=== PATIENT | male | born 1965 | race Two or more races ===

== ENCOUNTER → 2020-04-22 15:42 | Outpatient (BNVA) | payer OTHER, SELFPAY | PROVIDERS: Visit Provider Urology ==

== ENCOUNTER → 2020-05-27 15:02 | Outpatient (BNVA) | payer OTHER, SELFPAY | PROVIDERS: Visit Provider Urology ==

== ENCOUNTER → 2020-12-11 10:10 | Outpatient (BNVA) | payer OTHER, SELFPAY | PROVIDERS: Visit Provider Urology ==

== ENCOUNTER → 2021-04-16 12:08 | Outpatient (BNVA) | payer OTHER, SELFPAY | PROVIDERS: Visit Provider Urology ==

== ENCOUNTER → 2021-05-19 14:43 | Outpatient (BNVA) | payer OTHER, SELFPAY | PROVIDERS: Visit Provider Urology | DX: Z13.89 Encounter for screening for other disorder (principal) ==

== ENCOUNTER → 2021-06-08 10:59 | Outpatient (REF) | payer OTHER, SELFPAY ==
--- NOTE | ~2021-06-08 | NM_ITS ---
EXAMINATION: NM BONE SCAN OF THE WHOLE BODY CLINICAL INFORMATION: Malignant neoplasm of prostate. COMPARISON: No previous bone scan or radiographs are available for comparison. TECHNIQUE: Multiple gamma scintillation camera images of the whole body were performed 2.75 hours following the intravenous administration of 30 mCi Tc-99m MDP. FINDINGS: In the head, several foci of mildly to moderately increased activity are present in the calvarium, most prominently a moderately intense focus near the midline in the posterior occipital skull. In the thoracic cage and upper extremities, multiple foci of moderately to markedly increased activity are present throughout the rib cage, at the right sternoclavicular joint, in the glenohumeral articulation of the right shoulder and in a faint focus in the proximal shaft of the right humerus. 1. Are 2 small foci of moderate activity are present in the inferior tip of the left scapula and another faint focus is present laterally in the spine of the left scapula. Additional faint foci in the right scapula are also present. In the spine, multiple foci of moderately to markedly increased activity are present throughout the thoracic and lumbar spine. In the pelvis, moderate to markedly increased activity is present in multiple foci in the pelvis, most intensely in the posterior aspects of the iliac bones bilaterally. In the lower extremities, there is a small moderately intense focus in the lesser trochanteric region of the left femur, and just distal to this an additional small faint focus is present. There is a small focus of mildly increased activity in the patellar compartment of the right knee and in another in the medial aspect of the left ankle. No other definite bony abnormalities are noted. The urinary bladder and faint visualization of both kidneys are noted. NM/NM bone scan whole body IMPRESSION: Widespread metastatic tumor involvement of bone as described above.
== END ==
LOC: HO.NUCMED 10:59
PROVIDERS: Visit Provider Urology
DX: C61 Malignant neoplasm of prostate (principal); Z79.51 Long term (current) use of inhaled steroids
CPT/HCPCS: 78306; A9503

== ENCOUNTER → 2021-06-11 13:28 | Outpatient (BNVA) | payer OTHER, SELFPAY | PROVIDERS: PCP Physician Assistant; Visit Provider Urology | DX: C61 Malignant neoplasm of prostate (principal); C79.51 Secondary malignant neoplasm of bone | CPT/HCPCS: 96402; J9217 ==

== ENCOUNTER → 2021-06-18 12:56 | Outpatient (BNV) | payer OTHER, SELFPAY | PROVIDERS: PCP Physician Assistant; Visit Provider Internal Medicine Medical Oncology | DX: C61 Malignant neoplasm of prostate (principal); C79.51 Secondary malignant neoplasm of bone | CPT/HCPCS: 99204; 99213; 99214 ==

== ENCOUNTER → 2021-06-23 13:00 | Outpatient (BNVA) | payer OTHER, SELFPAY | PROVIDERS: PCP Physician Assistant; Visit Provider Urology | DX: Z13.89 Encounter for screening for other disorder (principal) ==

== ENCOUNTER 2021-08-07 08:18 | Outpatient (REF) | payer OTHER, SELFPAY ==
[2021-08-07 08:44] LABS: MANUAL DIFF FLAG NO
[2021-08-07 08:45] LABS: Basophils Percent Auto 0.6 % (0-2); Eosinophils Absolute Auto 0.1 X10*3/uL (0.0-0.4); Eosinophils Percent Auto 1.9 % (0-4); Hematocrit 41.9 % (42.0-52.0); Hemoglobin 14.3 g/dl (14.0-18.0); Imm Gran Abs Auto 0.02 X10*3/uL (0.00-0.03); Imm Gran Pct Auto 0.3 % (0.0-0.4); Lymphocytes Absolute Auto 2.6 X10*3/uL (1.2-4.9); Lymphocytes Percent Auto 38.3 % (20-40); Mean Corpuscular HGB Conc 34.1 g/dl (31.0-36.0); Mean Corpuscular Hemoglobin 29.5 pg (27.0-33.0); Mean Corpuscular Volume 86.4 fL (80.0-98.0); Mean Platelet Volume 8.9 fL (9.4-12.4); Monocytes Absolute Auto 0.8 X10*3/uL (0.1-1.2); Monocytes Percent Auto 11.6 % (2-11); Neutrophils Absolute Auto 3.2 x10*3/uL (2.0-8.3); Neutrophils Percent Auto 47.3 % (45-73); Platelet Count 217 X10*3/uL (160-400); Red Blood Count 4.85 X10*6/uL (4.60-5.80); Red Cell Distribution Width 12.6 % (11.0-16.0); White Blood Count 6.8 X10*3/uL (4.8-10.8)
[2021-08-07 09:14] LABS: Alanine Aminotransferase 26 U/L (0-40); Alkaline Phosphatase 137 U/L (39-117); Anion Gap 9 (12-20); Aspartate Amino Transferase 21 U/L (5-37); Bilirubin Total 0.6 mg/dL (0.0-1.0); Blood Urea Nitrogen 9 mg/dL (9-16); Calcium 8.1 mg/dL (8.4-10.2); Carbon Dioxide 26 mmol/L (22-29); Chloride 108 mmol/L (96-108); Estimated Glomerular Filt Rate > 60; Glucose Random 93 mg/dL (60-115); Potassium 4.2 mmol/L (3.3-5.1); Sodium 139 mmol/L (135-145)
[2021-08-07 09:24] LABS: Prostate Specific Antigen Scr 1.77 ng/mL (<0.05-4.0)
== END 2021-08-07 08:19 | disposition home or self-care (01) ==
LOC: HO.LAB 08:18
PROVIDERS: Urology; PCP Physician Assistant; Visit Provider Internal Medicine Medical Oncology
DX: Z12.5 Encounter for screening for malignant neoplasm of prostate (principal); C61 Malignant neoplasm of prostate
CPT/HCPCS: 36415; 80053; 82565; 84153; 85025

== ENCOUNTER 2021-08-11 14:44 | Outpatient (REF) | payer OTHER, SELFPAY ==
[2021-08-11 16:00] LABS: Blood Urea Nitrogen 14 mg/dL (9-16); Estimated Glomerular Filt Rate > 60
[2021-08-11 16:22] LABS: Prostate Specific Antigen 1.46 ng/mL (<0.05-4.0)
[2021-08-17 09:52] LABS: Testosterone, Total <1 ng/dL (250-1100)
== END 2021-08-11 14:45 | disposition home or self-care (01) ==
LOC: HO.LAB 14:44
PROVIDERS: Visit Provider Urology
DX: Z12.5 Encounter for screening for malignant neoplasm of prostate (principal); C61 Malignant neoplasm of prostate; C79.51 Secondary malignant neoplasm of bone; R39.15 Urgency of urination; R97.21 Rising PSA following treatment for malignant neoplasm of prostate
CPT/HCPCS: 36415; 82565; 84153; 84403; 84520

== ENCOUNTER → 2021-12-29 09:54 | Outpatient (BNVA) | payer OTHER, SELFPAY | PROVIDERS: PCP Physician Assistant; Visit Provider Urology | DX: R97.21 Rising PSA following treatment for malignant neoplasm of prostate (principal); C61 Malignant neoplasm of prostate; C79.51 Secondary malignant neoplasm of bone | CPT/HCPCS: 96402; J9217 ==

== ENCOUNTER 2022-01-17 13:59 | Outpatient (REF) | payer OTHER, SELFPAY ==
[2022-01-17 14:20] LABS: MANUAL DIFF FLAG NO
[2022-01-17 15:01] LABS: Basophils Absolute Auto 0.1 X10*3/uL (0.0-0.2); Basophils Percent Auto 0.9 % (0-2); Eosinophils Percent Auto 0.3 % (0-4); Hematocrit 42.5 % (42.0-52.0); Hemoglobin 14.4 g/dl (14.0-18.0); Imm Gran Abs Auto 0.22 X10*3/uL (0.00-0.03); Imm Gran Pct Auto 1.9 % (0.0-0.4); Lymphocytes Absolute Auto 3.6 X10*3/uL (1.2-4.9); Lymphocytes Percent Auto 31.2 % (20-40); Mean Corpuscular HGB Conc 33.9 g/dl (31.0-36.0); Mean Corpuscular Hemoglobin 28.8 pg (27.0-33.0); Mean Platelet Volume 9.4 fL (9.4-12.4); Monocytes Absolute Auto 1.2 X10*3/uL (0.1-1.2); Monocytes Percent Auto 10.6 % (2-11); Neutrophils Absolute Auto 6.4 x10*3/uL (2.0-8.3); Neutrophils Percent Auto 55.1 % (45-73); Platelet Count 261 X10*3/uL (160-400); Red Cell Distribution Width 12.4 % (11.0-16.0); White Blood Count 11.6 X10*3/uL (4.8-10.8)
[2022-01-17 16:07] LABS: Alanine Aminotransferase 31 U/L (0-40); Albumin Level 3.9 g/dL (3.5-5.0); Alkaline Phosphatase 94 U/L (39-117); Anion Gap 13 (12-20); Aspartate Amino Transferase 19 U/L (5-37); Bilirubin Total 0.3 mg/dL (0.0-1.0); Blood Urea Nitrogen 10 mg/dL (9-16); Calcium 8.7 mg/dL (8.4-10.2); Carbon Dioxide 24 mmol/L (22-29); Chloride 107 mmol/L (96-108); Estimated Glomerular Filt Rate > 60; Glucose Random 82 mg/dL (60-115); Potassium 3.8 mmol/L (3.3-5.1); Sodium 140 mmol/L (135-145); TSH reflex Free T4 0.04 uIU/mL (0.32-4.0); Total Protein 6.8 g/dL (6.5-8.0)
[2022-01-17 16:09] LABS: Prostate Specific Antigen Scr 2.29 ng/mL (<0.05-4.0)
[2022-01-17 16:40] LABS: Free T4 (Free Thyroxine) 1.54 ng/dL (0.71-1.85)
== END 2022-01-17 14:00 | disposition home or self-care (01) ==
LOC: HO.LAB 13:59
PROVIDERS: Absent Provider Physician Assistant; PCP Physician Assistant; Visit Provider Internal Medicine Medical Oncology
DX: Z12.5 Encounter for screening for malignant neoplasm of prostate (principal); C61 Malignant neoplasm of prostate; E03.9 Hypothyroidism, unspecified
CPT/HCPCS: 36415; 80053; 84153; 84439; 84443; 85025

== ENCOUNTER 2022-03-21 11:08 | Outpatient (REF) | payer OTHER, SELFPAY ==
[2022-03-21 11:45] LABS: COVID-19 Test Negative (Negative); IDNOW Serial# BCCEAD1C
== END 2022-03-21 11:09 | disposition home or self-care (01) ==
LOC: HO.LAB 11:08
PROVIDERS: Visit Provider Internal Medicine
DX: Z20.822 Contact with and (suspected) exposure to COVID-19 (principal)
CPT/HCPCS: 87635; C9803

== ENCOUNTER → 2022-04-01 12:59 | Outpatient (BNVA) | payer OTHER, SELFPAY | PROVIDERS: PCP Physician Assistant; Visit Provider Urology | DX: Z13.89 Encounter for screening for other disorder (principal) ==

== ENCOUNTER → 2022-04-05 10:57 | Outpatient (REF) | payer OTHER, SELFPAY ==
--- NOTE | ~2022-04-05 | NM_ITS ---
EXAMINATION: NM BONE SCAN OF THE WHOLE BODY CLINICAL INFORMATION: Follow up prostate cancer with bone metastatic disease COMPARISON: Previous dated 06/08/2021 TECHNIQUE: Multiple gamma scintillation camera images of the whole body were performed 2 hours following the intravenous administration of 30 mCi Tc-99m MDP. FINDINGS: In the head, improved. There is still activity within the posterior central calvarium which appears less than previous and diminished activity in the other 2 foci posterior. In the thoracic cage and upper extremities as in the skull, there is once again uptake in areas observed previously but this is felt to be diminishing in multiple areas. There is no convincing evidence for a new focus. In the spine, again foci of uptake are seen but many are now imperceptible and several are markedly diminished. Importantly no new focus. In the pelvis, again decreasing areas of activity within multiple areas seen previously. Some are totally diminished. There remains some mild uptake in the central sacrum and left acetabulum. In the lower extremities, diminished uptake in the region of the lesser trochanter of the left hip. No new focus. No other definite bony abnormalities are noted. The urinary bladder and faint visualization of both kidneys are noted. NM/NM bone scan whole body IMPRESSION: Areas of uptake are once again seen. As described many of these areas are now imperceptible while others are decreased to markedly decreased in uptake. Importantly there is no new finding.
== END ==
LOC: HO.NUCMED 10:57
PROVIDERS: Visit Provider Internal Medicine Medical Oncology
DX: C61 Malignant neoplasm of prostate (principal)
CPT/HCPCS: 78306; A9503

== ENCOUNTER → 2022-07-08 12:58 | Outpatient (BNVA) | payer OTHER, SELFPAY | PROVIDERS: PCP Physician Assistant; Visit Provider Urology | DX: C61 Malignant neoplasm of prostate (principal); C79.51 Secondary malignant neoplasm of bone; R97.21 Rising PSA following treatment for malignant neoplasm of prostate; N52.35 Erectile dysfunction following radiation therapy; Z79.52 Long term (current) use of systemic steroids; Z79.899 Other long term (current) drug therapy; Z92.3 Personal history of irradiation | CPT/HCPCS: 96402; J9217 ==

== ENCOUNTER 2022-11-15 08:21 | Outpatient (REF) | payer OTHER, SELFPAY ==
[2022-11-15 09:46] LABS: Prostate Specific Antigen 0.67 ng/mL (<0.05-4.0)
[2022-11-20 15:13] LABS: Testosterone, Total 145 ng/dL (250-1100)
== END 2022-11-15 08:22 | disposition home or self-care (01) ==
LOC: HO.LAB 08:21
PROVIDERS: Visit Provider Urology
DX: Z12.5 Encounter for screening for malignant neoplasm of prostate (principal); R97.21 Rising PSA following treatment for malignant neoplasm of prostate
CPT/HCPCS: 36415; 84153; 84403

== ENCOUNTER 2022-11-22 15:15 | Outpatient (AMB) | payer OTHER, SELFPAY ==
--- NOTE | 2022-11-22 15:34 | A.OFFVIS_ITS ---
Intake Intake Visit Reasons: 3M PSA/Testosterone(set) Intake Note: Patient is Present for Follow Up LABS Urology Medication: Tadalafil, Sildenafil, Eligard(q6m) Antibiotic Allergies: None Blood Thinners: None Pharmacy: [facility] Allergies No Known Allergies Allergy (Verified 12/01/22 15:21) Medication List - Last Reconciled 11/22/22 by Wesly Tejada MD cholecalciferol (vitamin D3) (Vitamin D3) 50 mcg PO DAILY gabapentin 300 mg PO BEDTIME 90 days leuprolide acetate (6 month) (Eligard) 45 mg subcut [id number] levothyroxine 200 mcg PO DAILY sildenafil 100 mg PO DAILY PRN 30 days tadalafil 10 mg PO DAILY PRN 90 days HPI HPI Comments History of Present Illness Details Chaparro Shah is a very pleasant male. He is a patient of Dr Waterman. He is seen for the following urologic conditions. - prostate cancer - rising PSA from prostate cancer - meta static disease - erectile dysfunction PSA stable however T is recovered. Due for GnRH next month Plan for GnRH next months with labs early March with prolia Repeat PET-CT - will continue with 6 month cycle Completed 7 cycles of taxotere 07/12 PSMA scan no new osseous activity. Does have widespread bony metastases. Last GnRH 07/08/22 Labs 05/12 0.4, 11/12 P 0.7 T 145 Prostate cancer: High-grade Initial therapy: 09/2015 EXBRT plus 18m hormone therapy [facility] Secondary therapy: 06/11 Metastatic disease - 12/[address] Michaels 06/11 GnRH with oral antiandrogen (Zytiga and prednisone) - bone scan positive - denosumab adjuvant Prostate cancer was diagnosed September 2015 Dr Tejada. Diagnosis was reached by needle biopsy, for elevated PSA, PSA at diagnosis 9.5 The Shahana grade is September 2015 - At biopsy, left base, 3+4 = 7, left mid gland, 4+5 = 9, left apex, 3+4 = 7 12 cores - all left ranging from 5-90%, perineural invasion, base x 2. TNM Classification of Malignant Tumours (TNM) T1c 12/05 MRI - PAWAN , T3a 12/05 Bone Scan - Negative. The D'Michael (NCCN) risk category is High Risk (PSA > 20, Gl 8+, T3). Initial therapy included Primary treatment, External beam radiation with 18m hormone ablation - Dr Gudino 12/2015 GnRH - 06/01/16, next 11/15/1605/07 5AR TIW 08/07 stop 5AR. Recent labs included a PSA (prostate-specific antigen)n 06/06 < 0.1 , a testosterone 06/06 13 09/05 , a PSA (prostate-specific antigen), < 0.1, , a testosterone 7, 12/06 , a PSA (prostate-specific antigen) < 0.1, T 18, 02/05 , a PSA (prostate- specific antigen) < 0.1 05/07 a PSA (prostate-specific antigen) 0.2, , a testosterone 247, 08/07 , a PSA (prostate-specific antigen) 0.3, T 314, 12/07 , a PSA (prostate-specific antigen) 0.7 T 340 04/10 PSA 0.8, 10/08 PSA 0.9, T 465 04/11 1.0, 10/09 1.2, 04/12 0.8, T 600, 12/10 PSA 1.7 T 480, 04/13 9.5, 09/10 1.1 <1, 12/11 11, 01/11 3.4 Imaging included Oct 2015 , an MRI (magnetic resonance imaging) - evidence of extracapsular extension by 5 mm. , a bone scan - negative - 05/11 PSMA PET-CT SCAN concern for metastatic bone disease - 06/11 bone scan positive for metastatic prostate cancer - 10/11 PSMA progressive disease - 07/12 PSMA stabilized disease Associated conditions erectile dysfunction Yes Therapeutic plan: Continue GnRH Erectile dysfunction Good response tadalafil 10 mg daily As sildenafil 100 mg as needed PFSH Medical History Blood in the stool Drug-induced erectile dysfunction Elevated PSA Erectile dysfunction following radiation therapy High cholesterol Hypothyroidism Nocturia Prostate cancer Urgency-frequency syndrome Surgical History History of surgery Family History Sister Breast cancer Paternal Uncle Cancer Social History Household Members: Spouse and Children Housing: House Are you a primary nurse care manager to a significant other at home: No Do you presently have visiting nurse or other home services: No Patient Tobacco Use Status: Never used Tobacco Use of substances other than those prescribed or required for medical reasons: No Have you been hit, kicked, punched, or otherwise hurt by someone within the past year? If so, by whom?: No Do you feel safe in your current relationship?: Yes Do you have thoughts of harming others: None Do you have a plan to hurt others: No Plan Do you have the means to hurt others: No Recently lost weight without trying: No service: Yes Current occupational status: retired Review of Systems Const Denies chills and Denies fever(s) Card Reports no additional complaints and Denies syncope Resp Denies cough GI Denies abdominal pain and Denies heartburn Reports as per HPI and Denies change in libido Neuro Denies syncope Psych Denies change in libido Endo Denies change in libido Physical Exam Const General: cooperative, healthy appearing, comfortable and no acute distress Orientation/consciousness: patient oriented x3 HEENT Face and sinus: Yes normal facial exam Mouth: moist mucous membranes Neck Neck: Yes normal visual inspection, Yes full ROM and Yes trachea midline Chest Chest palpation & inspection: normal inspection of the chest Resp Effort & Inspection: normal respiratory effort, able to speak in complete sentences and no respiratory distress GI Inspection: Yes normal to inspection Back/Spine/Pelvis Cervical Spine: normal cervical lordosis Thoracic/Lumbar Spine: thoracic and lumbar spine normal to inspection Skin General skin exam: no rashes or lesions noted Neuro General: patient oriented x3, gait normal, tone normal and moves all extremities Extrem General: Yes normal to inspection and Yes capillary refill normal Assessment & Plan Assessment & Plan (1) Bone metastases: Code(s): C79.51 - Secondary malignant neoplasm of bone (2) Prostate cancer metastatic to bone: Code(s): C61 - Malignant neoplasm of prostate; C79.51 - Secondary malignant neoplasm of bone Plan One month follow-up PET-CT with Prolia GnRH Orders: Orders PET CT fusion skull to thigh 4 Weeks C61 - Malignant neoplasm of prostate, C79.51 - Secondary malignant neoplasm of bone Patient Instructions: Imaging studies, laboratory and physical exam results were discussed and reviewed in detail. No major barriers to patient understanding were identified. An opportunity to ask questions regarding the treatment plan was provided. All questions were answered. The patient expressed understanding and agreement with the above treatment plan. The patient is aware they should contact our office by phone for worsening of their current condition or the appearance of new urologic symptoms. Compliance is encouraged with any medications and followup testing that is ordered. It is a privilege to participate in the urologic care of your patient. If you have any questions or concerns regarding treatment for the above conditions, or other urologic issues, please do not hesitate to contact me. The office telephone contact is [phone]. This note is constructed using voice recognition software. While every effort has been made to ensure accuracy screw down errors may have been included. Yours sincerely, Dr Wesly Tejada MD, [facility] - Urology Providers of Expert, Compassionate Care for the Genitourinary System Coding Level of Care Code Est Pt Level 4 (67502) Diagnoses Bone metastases C79.51 Prostate cancer metastatic to bone C61; C79.51
== END 2022-11-22 15:58 | disposition home or self-care (01) ==
PROVIDERS: PCP Physician Assistant; Visit Provider Urology
DX: C61 Malignant neoplasm of prostate (principal); C79.51 Secondary malignant neoplasm of bone
CPT/HCPCS: 99214

== ENCOUNTER → 2022-11-22 15:15 | Outpatient (BNVA) | payer OTHER, SELFPAY | PROVIDERS: Visit Provider Urology ==

== ENCOUNTER 2022-12-28 12:33 | Outpatient (REF) | payer OTHER, SELFPAY ==
[2022-12-28 10:26] LABS: Prostate Specific Antigen 2.71 ng/mL (<0.05-4.0)
[2023-01-03 11:09] LABS: Testosterone, Total 204 ng/dL (250-1100)
== END 2022-12-28 12:34 | disposition home or self-care (01) ==
LOC: HO.LAB 12:33
PROVIDERS: Visit Provider Urology
DX: Z12.5 Encounter for screening for malignant neoplasm of prostate (principal); C61 Malignant neoplasm of prostate; C79.51 Secondary malignant neoplasm of bone
CPT/HCPCS: 36415; 84153; 84403

== ENCOUNTER 2023-01-03 09:50 | Outpatient (AMB) | payer OTHER, SELFPAY ==
--- NOTE | 2023-01-03 10:18 | AM.OFFVISNUR ---
Intake Intake Visit Reasons: GnRH/Prolia Allergies No Known Allergies Allergy (Verified 01/02/23 10:16) Nursing Note pt refused Prolia injection stating received yesterday at Oncology, reviewed Oncology note and verified injection was given by them in their office at yesterday's visit. Office Meds Prolia 60 mg/mL subcutaneous syringe Performing Provider: Wesly Tejada MD [place] [facility] [place] [facility] Documented (not given) by: Heather Turner RN on 01/03/23 10:18 Reason Not Given: Patient Refused Eligard (6 month) 45 mg (6 month) subcutaneous syringe Performing Provider: Wesly Tejada MD [place] [facility] [place] [facility] Administered by: Heather Turner RN on 01/03/23 10:18 Dose Route Admin Location Dispensed Lot Number Expiration Date [facility] [employer] 45 mg subcut right arm 45 mg [id number] 02/21/24 12253-407-42 [employer]. Coding Assessment & Plan Assessment & Plan Orders: Orders AMB Leuprolide Injection - Practice Supplied Today C61 - Malignant neoplasm of prostate AMB Denosumab Injection Practice Supplied Today C61 - Malignant neoplasm of prostate, C79.51 - Secondary malignant neoplasm of bone
== END 2023-01-03 11:14 | disposition home or self-care (01) ==
PROVIDERS: PCP Physician Assistant; Visit Provider Urology
DX: C61 Malignant neoplasm of prostate (principal); C79.51 Secondary malignant neoplasm of bone

== ENCOUNTER → 2023-01-03 09:50 | Outpatient (BNVA) | payer OTHER, SELFPAY | PROVIDERS: PCP Physician Assistant; Visit Provider Urology | DX: C61 Malignant neoplasm of prostate (principal); C79.51 Secondary malignant neoplasm of bone; Z79.620 Long term (current) use of immunosuppressive biologic | CPT/HCPCS: 96372; 96402; J0897; J9217 ==

== ENCOUNTER 2023-01-31 08:51 | Outpatient (AMB) | payer OTHER, SELFPAY ==
--- NOTE | 2023-01-31 09:03 | A.OFFVIS_ITS ---
Intake Intake Visit Reasons: 4W PET CT(SET) Intake Note: Patient is Present for Follow Up PET CT Urology Medication: Sildenafil, Tadalafil Antibiotic Allergies: None Blood Thinners: None Allergies No Known Allergies Allergy (Verified 01/31/23 09:04) Medication List - Last Reconciled 01/31/23 by Wesly Tejada MD cholecalciferol (vitamin D3) (Vitamin D3) 50 mcg PO DAILY gabapentin 300 mg PO BEDTIME 90 days levothyroxine 200 mcg PO DAILY pantoprazole 40 mg PO DAILY sildenafil 100 mg PO DAILY PRN 30 days tadalafil 10 mg PO DAILY PRN 90 days HPI HPI Comments History of Present Illness Details Chaparro Shah is a very pleasant male. He is a patient of Dr Waterman. He is seen for the following urologic conditions. - prostate cancer - rising PSA from prostate cancer - meta static disease - erectile dysfunction 02/11 - PET-CT - progressive bony diseas e, new retroperitoneal lesion - good performance status Does report ongoing back pain Has been undergoing and denosumab therapy with Dr. Michaels. Current recommendation is for evaluation for LuPSMA therapy with radiation oncology Referral to be made to [facility] Rad Onc for assessment Has upcoming lab work Three month follow-up 01/12 PSA 2.7 T 204 - GnRH Completed 7 cycles of taxotere 07/12 PSMA scan no new osseous activity. Does have widespread bony metastases. 07/08/22 GnRH Labs 05/12 0.4, 11/12 P 0.7 T 145 Prostate cancer: High-grade Initial therapy: 09/2015 EXBRT plus 18m hormone therapy [facility] Secondary therapy: 06/11 Metastatic disease - 12/[address] Michaels 06/11 GnRH with oral antiandrogen (Zytiga and prednisone) - bone scan positive - denosumab adjuvant Prostate cancer was diagnosed September 2015 Dr Tejada. Diagnosis was reached by needle biopsy, for elevated PSA, PSA at diagnosis 9.5 The Shahana grade is September 2015 - At biopsy, left base, 3+4 = 7, left mid gland, 4+5 = 9, left apex, 3+4 = 7 07/01 cores - all left ranging from 5-90%, perineural invasion, base x 2. TNM Classification of Malignant Tumours (TNM) T1c 12/05 MRI - PAWAN , T3a 12/05 Bone Scan - Negative. The D'Michael (NCCN) risk category is High Risk (PSA > 20, Gl 8+, T3). Initial therapy included Primary treatment, External beam radiation with 18m hormone ablation - Dr Gudino 12/2015 GnRH - 06/01/16, next 11/15/1605/07 5AR TIW 08/07 stop 5AR. Recent labs included a PSA (prostate-specific antigen)n 06/06 < 0.1 , a testosterone 06/06 13 09/05 , a PSA (prostate-specific antigen), < 0.1, , a testosterone 7, 12/06 , a PSA (prostate-specific antigen) < 0.1, T 18, 02/05 , a PSA (prostate- specific antigen) < 0.1 05/07 a PSA (prostate-specific antigen) 0.2, , a testosterone 247, 08/07 , a PSA (prostate-specific antigen) 0.3, T 314, 12/07 , a PSA (prostate-specific antigen) 0.7 T 340 04/10 PSA 0.8, 10/08 PSA 0.9, T 465 04/11 1.0, 10/09 1.2, 04/12 0.8, T 600, 12/10 PSA 1.7 T 480, 04/13 9.5, 09/10 1.1 <1, 12/11 11, 01/11 3.4 Imaging included Oct 2015 , an MRI (magnetic resonance imaging) - evidence of extracapsular extension by 5 mm. , a bone scan - negative - 05/11 PSMA PET-CT SCAN concern for metastatic bone disease - 06/11 bone scan positive for metastatic prostate cancer - 10/11 PSMA progressive disease - 07/12 PSMA stabilized disease Associated conditions erectile dysfunction Yes Therapeutic plan: Continue GnRH Erectile dysfunction Good response tadalafil 10 mg daily As sildenafil 100 mg as needed PFSH Medical History Drug-induced erectile dysfunction High cholesterol Blood in the stool Hypothyroidism Elevated PSA Erectile dysfunction following radiation therapy Urgency-frequency syndrome Nocturia Prostate cancer Surgical History History of surgery Family History Sister Breast cancer Paternal Uncle Cancer Social History Household Members: Spouse and Children Housing: House Are you a primary managed care liaison to a significant other at home: No Do you presently have visiting nurse or other home services: No Patient Tobacco Use Status: Never used Tobacco service: Yes Current occupational status: retired Review of Systems Const Denies chills and Denies fever(s) Card Reports no additional complaints and Denies syncope Resp Denies cough GI Denies abdominal pain and Denies heartburn Reports as per HPI and Denies change in libido Neuro Denies syncope Psych Denies change in libido Endo Denies change in libido Physical Exam Const General: cooperative, healthy appearing, comfortable and no acute distress Orientation/consciousness: patient oriented x3 HEENT Face and sinus: Yes normal facial exam Mouth: moist mucous membranes Neck Neck: Yes normal visual inspection, Yes full ROM and Yes trachea midline Chest Chest palpation & inspection: normal inspection of the chest Resp Effort & Inspection: normal respiratory effort, able to speak in complete sentences and no respiratory distress GI Inspection: Yes normal to inspection Back/Spine/Pelvis Cervical Spine: normal cervical lordosis Thoracic/Lumbar Spine: thoracic and lumbar spine normal to inspection Skin General skin exam: no rashes or lesions noted Neuro General: patient oriented x3, gait normal, tone normal and moves all extremities Extrem General: Yes normal to inspection and Yes capillary refill normal Assessment & Plan Assessment & Plan (1) Prostate cancer metastatic to bone: Code(s): C61 - Malignant neoplasm of prostate; C79.51 - Secondary malignant neoplasm of bone (2) Erectile dysfunction following radiation therapy: Code(s): N52.35 - Erectile dysfunction following radiation therapy (3) Hypogonadism in male: Code(s): E29.1 - Testicular hypofunction Plan Three month follow-up Orders: Referrals Radiation Oncology Referral C61 - Malignant neoplasm of prostate, C79.51 - Secondary malignant neoplasm of bone Patient Instructions: Imaging studies, laboratory and physical exam results were discussed and reviewed in detail. No major barriers to patient understanding were identified. An opportunity to ask questions regarding the treatment plan was provided. All questions were answered. The patient expressed understanding and agreement with the above treatment plan. The patient is aware they should contact our office by phone for worsening of their current condition or the appearance of new urologic symptoms. Compliance is encouraged with any medications and followup testing that is ordered. It is a privilege to participate in the urologic care of your patient. If you have any questions or concerns regarding treatment for the above conditions, or other urologic issues, please do not hesitate to contact me. The office telephone contact is [phone]. This note is constructed using voice recognition software. While every effort has been made to ensure accuracy manager employment errors may have been included. Yours sincerely, Dr Wesly Tejada MD, [facility] - Urology Providers of Expert, Compassionate Care for the Genitourinary System Coding Level of Care Code Est Pt Level 3 (61315) Diagnoses Prostate cancer metastatic to bone C61; C79.51 Erectile dysfunction following radiation therapy N52.35 Hypogonadism in male E29.1
== END 2023-01-31 09:33 | disposition home or self-care (01) ==
PROVIDERS: PCP Physician Assistant; Visit Provider Urology
DX: C61 Malignant neoplasm of prostate (principal); C79.51 Secondary malignant neoplasm of bone; N52.35 Erectile dysfunction following radiation therapy; E29.1 Testicular hypofunction
CPT/HCPCS: 99213

== ENCOUNTER → 2023-01-31 08:51 | Outpatient (BNVA) | payer OTHER, SELFPAY | PROVIDERS: PCP Physician Assistant; Visit Provider Urology ==

== ENCOUNTER 2023-05-05 09:29 | Outpatient (AMB) | payer OTHER, SELFPAY ==
--- NOTE | 2023-05-05 09:30 | A.OFFVIS_ITS ---
Intake Intake Visit Reasons: 3m follow up Intake Note: Patient is Present for Telephone Follow Up For Urology Med: sildenafil, tadalafil Antibiotic Allergy: None Blood Thinner:None Allergies No Known Allergies Allergy (Verified 04/19/23 11:03) HPI HPI Comments History of Present Illness Details Chaparro Shah is a very pleasant male. He is a patient of Dr Waterman. He is seen for the following urologic conditions. - prostate cancer - rising PSA from prostate cancer - meta static disease - erectile dysfunction Telemedicine Evaluation 15 min Consultation [employer] Video 05/13 PSA 1.1 PSMA PET scan in [place], results: Abnormal bone lesions consistent with active tumor. Involving T10, L4, left scapular area. Right ala of sacrum. Also noted to have positive retroperitoneal lymph nodes. - under assessment for LuPSMA [place] Dr Lopez 02/11 - PET-CT - progressive bony diseas e, new retroperitoneal lesion - good performance status Does report ongoing back pain Has been undergoing denosumab therapy with Dr. Michaels. Current recommendation is for evaluation for LuPSMA therapy with radiation oncology 01/12 PSA 2.7 T 204 - GnRH Completed 7 cycles of taxotere 07/12 PSMA scan no new osseous activity. Does have widespread bony metastases. 07/08/22 GnRH Labs 05/12 0.4, 11/12 P 0.7 T 145 Prostate cancer: High-grade Initial therapy: 09/2015 EXBRT plus 18m hormone therapy [facility] Secondary therapy: 06/11 Metastatic disease - 12/[address] Michaels 06/11 GnRH with oral antiandrogen (Zytiga and prednisone) - bone scan positive - denosumab adjuvant Prostate cancer was diagnosed September 2015 Dr Tejada. Diagnosis was reached by needle biopsy, for elevated PSA, PSA at diagnosis 9.5 The [place] grade is September 2015 - At biopsy, left base, 3+4 = 7, left mid gland, 4+5 = 9, left apex, 3+4 = 7 07/01 cores - all left ranging from 5-90%, perineural invasion, base x 2. TNM Classification of Malignant Tumours (TNM) T1c 12/05 MRI - PAWAN , T3a 12/05 Bone Scan - Negative. The D'Michael (NCCN) risk category is High Risk (PSA > 20, Gl 8+, T3). Initial therapy included Primary treatment, External beam radiation with 18m hormone ablation - Dr Gudino 12/2015 GnRH - 06/01/16, next 11/15/1605/07 5AR TIW 08/07 stop 5AR. Recent labs included a PSA (prostate-specific antigen)n 06/06 < 0.1 , a testosterone 06/06 13 09/05 , a PSA (prostate-specific antigen), < 0.1, , a testosterone 7, 12/06 , a PSA (prostate-specific antigen) < 0.1, T 18, 02/05 , a PSA (prostate- specific antigen) < 0.1 05/07 a PSA (prostate-specific antigen) 0.2, , a testosterone 247, 08/07 , a PSA (prostate-specific antigen) 0.3, T 314, 12/07 , a PSA (prostate-specific antigen) 0.7 T 340 04/10 PSA 0.8, 10/08 PSA 0.9, T 465 04/11 1.0, 10/09 1.2, 04/12 0.8, T 600, 12/10 PSA 1.7 T 480, 04/13 9.5, 09/10 1.1 <1, 12/11 11, 01/11 3.4 Imaging included Oct 2015 , an MRI (magnetic resonance imaging) - evidence of extracapsular extension by 5 mm. , a bone scan - negative - 05/11 PSMA PET-CT SCAN concern for metastatic bone disease - 06/11 bone scan positive for metastatic prostate cancer - 10/11 PSMA progressive disease - 07/12 PSMA stabilized disease Associated conditions erectile dysfunction Yes Therapeutic plan: Continue GnRH Erectile dysfunction Good response tadalafil 10 mg daily As sildenafil 100 mg as needed PFSH Medical History Drug-induced erectile dysfunction High cholesterol Blood in the stool Hypothyroidism Elevated PSA Erectile dysfunction following radiation therapy Urgency-frequency syndrome Nocturia Prostate cancer Surgical History History of surgery Family History Sister Breast cancer Paternal Uncle Cancer Social History Household Members: Spouse and Children Housing: House Are you a primary home care physical therapist to a significant other at home: No Do you presently have visiting nurse or other home services: No Patient Tobacco Use Status: Never used Tobacco service: Yes Current occupational status: retired Review of Systems Const All systems reviewed & are unremarkable except as noted in HPI and below Reports no additional complaints Resp Reports no additional complaints GI Reports no additional complaints Reports as per HPI Musc Reports no additional complaints Physical Exam Telemedicine evaluation Appropriate responses Regular breathing rate and rhythm HEENT Head: Yes normal to inspection Ears: hearing grossly normal bilaterally Eyes General: appearance normal, both eyes and all related structures Neck Neck: Yes normal visual inspection Chest Chest palpation & inspection: normal inspection of the chest Resp Effort & Inspection: normal respiratory effort and able to speak in complete sentences Assessment & Plan Assessment & Plan (1) Prostate cancer: Comment: High-grade prostate cancer external beam radiation 2015 Code(s): C61 - Malignant neoplasm of prostate (2) Hypogonadism in male: Code(s): E29.1 - Testicular hypofunction (3) Rising PSA following treatment for malignant neoplasm of prostate: Code(s): R97.21 - Rising PSA following treatment for malignant neoplasm of prostate Plan Going to [place] for lutetium therapy Three-month follow-up lab work Orders: Orders Prostate Specific Antigen 3 Months C61 - Malignant neoplasm of prostate Testosterone, Total 3 Months C61 - Malignant neoplasm of prostate Patient Instructions: Imaging studies, laboratory and physical exam results were discussed and reviewed in detail. No major barriers to patient understanding were identified. An opportunity to ask questions regarding the treatment plan was provided. All questions were answered. The patient expressed understanding and agreement with the above treatment plan. The patient is aware they should contact our office by phone for worsening of their current condition or the appearance of new urologic symptoms. Compliance is encouraged with any medications and followup testing that is ordered. It is a privilege to participate in the urologic care of your patient. If you have any questions or concerns regarding treatment for the above conditions, or other urologic issues, please do not hesitate to contact me. The office t elephone contact is [phone]. This note is constructed using voice recognition software. While every effort has been made to ensure accuracy data control clerk supervisor errors may have been included. Yours sincerely, Dr Wesly Tejada MD, MAY [facility] - Urology Providers of Expert, Compassionate Care for the Genitourinary System Telehealth Telehealth Location of provider rendering services: practice address Location of patient: address on file Patient Identification confirmed using: Name, : Yes Telehealth method: video Patient verbally consented to treatment: Yes Patient verbally consented to billing insurance company: Yes Patient informed of any privacy concerns related to visit: Yes Coding Level of Care Code Tele Est Pt Level 3 (24606) Diagnoses Prostate cancer C61 Hypogonadism in male E29.1 Rising PSA following treatment for malignant neoplasm of prostate R97.21
== END 2023-05-05 10:24 | disposition home or self-care (01) ==
LOC: HO.HUSH 09:29
PROVIDERS: PCP Physician Assistant; Visit Provider Urology
DX: C61 Malignant neoplasm of prostate (principal); E29.1 Testicular hypofunction; R97.21 Rising PSA following treatment for malignant neoplasm of prostate
CPT/HCPCS: 99213

== ENCOUNTER → 2023-05-05 09:29 | Outpatient (BNVA) | payer OTHER, SELFPAY | PROVIDERS: PCP Physician Assistant; Visit Provider Urology ==

== ENCOUNTER 2023-08-15 11:26 | Outpatient (AMB) | payer OTHER, SELFPAY ==
--- NOTE | 2023-08-15 11:27 | A.OFFVIS_ITS ---
Intake Visit Reasons: 3M PSA/Testosterone(set) Intake Note: Patient is present for 3 month PSA and testosterone Urology Medication:sildenafil,tadalafil,gabapentin Antibiotic Allergy:none Blood Thinner:none Senior Python Developer Required: No Allergies No Known Allergies Allergy (Verified 08/15/23 11:30) HPI Comments Details: Chaparro Shah is a very pleasant male. He is a patient of Dr Waterman. He is seen for the following urologic conditions. - prostate cancer - rising PSA from prostate cancer - metastatic disease - erectile dysfunction Telemedicine Evaluation 15 min Consultation [employer] Arlyn Video 08/13 PSA 0.77 T 7 Undergoing therapy in [place] with lutetium Has completed 2 cycles We will keep us informed He will check whether he requires GnRH 05/13 PSA 1.1 PSMA PET scan in [place], results: Abnormal bone lesions consistent with active tumor. Involving T10, L4, left scapular area. Right ala of sacrum. Also noted to have positive retroperitoneal lymph nodes. - under assessment for LuPSMA [place] Dr Lopez 02/11 - PET-CT - progressive bony disease, new retroperitoneal lesion - good performance status Does report ongoing back pain Has been undergoing denosumab therapy with Dr. Michaels. Current recommendation is for evaluation for LuPSMA therapy with radiation oncology 01/12 PSA 2.7 T 204 - GnRH Completed 7 cycles of taxotere 07/12 PSMA scan no new osseous activity. Does have widespread bony metastases. 07/08/22 GnRH Labs 05/12 0.4, 11/12 P 0.7 T 145 Prostate cancer: High-grade Initial therapy: 09/2015 EXBRT plus 18m hormone therapy [facility] Secondary therapy: 06/11 Metastatic disease - 12/[address] Michaels 06/11 GnRH with oral antiandrogen (Zytiga and prednisone) - bone scan positive - denosumab adjuvant Prostate cancer was diagnosed September [address] Dr Tejada. Diagnosis was reached by needle biopsy, for elevated PSA, PSA at diagnosis 9.5 The [place] grade is September 2015 - At biopsy, left base, 3+4 = 7, left mid gland, 4+5 = 9, left apex, 3+4 = 7 07/01 cores - all left ranging from 5-90%, perineural invasion, base x 2. TNM Classification of Malignant Tumours (TNM) T1c 12/05 MRI - PAWAN , T3a 12/05 Bone Scan - Negative. The D'Michael (NCCN) risk category is High Risk (PSA > 20, Gl 8+, T3). Initial therapy included Primary treatment, External beam radiation with 18m hormone ablation - Dr Gudino 12/2015 GnRH - 06/01/16, next 11/15/1605/07 5AR TIW 08/07 stop 5AR. Recent labs included a PSA (prostate-specific antigen)n 06/06 < 0.1 , a testosterone 06/06 13 09/05 , a PSA (prostate-specific antigen), < 0.1, , a testosterone 7, 12/06 , a PSA (prostate-specific antigen) < 0.1, T 18, 02/05 , a PSA (prostate- specific antigen) < 0.1 05/07 a PSA (prostate-specific antigen) 0.2, , a testosterone 247, 08/07 , a PSA (prostate-specific antigen) 0.3, T 314, 12/07 , a PSA (prostate-specific antigen) 0.7 T 340 04/10 PSA 0.8, 10/08 PSA 0.9, T 465 04/11 1.0, 10/09 1.2, 04/12 0.8, T 600, 12/10 PSA 1.7 T 480, 04/13 9.5, 09/10 1.1 <1, 12/11 11, 01/11 3.4 Imaging included Oct 2015 , an MRI (magnetic resonance imaging) - evidence of extracapsular extension by 5 mm. , a bone scan - negative - 05/11 PSMA PET-CT SCAN concern for metastatic bone disease - 06/11 bone scan positive for metastatic prostate cancer - 10/11 PSMA progressive disease - 07/12 PSMA stabilized disease Associated conditions erectile dysfunction Yes Therapeutic plan: Continue GnRH Erectile dysfunction Good response tadalafil 10 mg daily As sildenafil 100 mg as needed PFSH Medical History Drug-induced erectile dysfunction High cholesterol Blood in the stool Hypothyroidism Elevated PSA Erectile dysfunction following radiation therapy Urgency-frequency syndrome Nocturia Prostate cancer Surgical History History of surgery Family History Sister Breast cancer Paternal Uncle Cancer Social History Household Members: Spouse and Children Housing: House Are you a primary child daycare worker to a significant other at home: No Do you presently have visiting nurse or other home services: No Patient Tobacco Use Status: Never used Tobacco service: Yes Current occupational status: retired Review of Systems Const All systems reviewed & are unremarkable except as noted in HPI and below Reports no additional complaints Resp Reports no additional complaints GI Reports no additional complaints Reports as per HPI Musc Reports no additional complaints Physical Exam Telemedicine evaluation Appropriate responses Regular breathing rate and rhythm HEENT Head: Yes normal to inspection Ears: hearing grossly normal bilaterally Eyes General: appearance normal, both eyes and all related structures Neck Neck: Yes normal visual inspection Chest Chest palpation & inspection: normal inspection of the chest Resp Effort & Inspection: normal respiratory effort and able to speak in complete sentences Telehealth Telehealth Telehealth Platform: [employer] Location of provider rendering services: practice address Location of patient: address on file Patient Identification confirmed using: Name, : Yes Telehealth method: video Patient verbally consented to treatment: Yes Patient verbally consented to billing insurance company: Yes Patient informed of any privacy concerns related to visit: Yes Minutes spent on Phone/Video with Pt.: 15 Assessment & Plan Assessment & Plan (1) Bone metastases: Code(s): C79.51 - Secondary malignant neoplasm of bone Category: Medical (2) Prostate cancer metastatic to bone: Code(s): C61 - Malignant neoplasm of prostate; C79.51 - Secondary malignant neoplasm of bone Category: Medical Plan Continue follow-up Orders: Orders Prostate Specific Antigen 3 Months C61 - Malignant neoplasm of prostate, C79.51 - Secondary malignant neoplasm of bone Testosterone, Total 3 Months C61 - Malignant neoplasm of prostate, C79.51 - Secondary malignant neoplasm of bone Medications: Refilled gabapentin 300 mg PO BEDTIME 90 caps 1RF 90 days R23.2 - [place], T50.905A - Adverse effect of unspecified drugs, medicaments and biological substances, initial encounter Patient Instructions: Imaging studies, laboratory and physical exam results were discussed and reviewed in detail. No major barriers to patient understanding were identified. An opportunity to ask questions regarding the treatment plan was provided. All questions were answered. The patient expressed understanding and agreement with the above treatment plan. The patient is aware they should contact our office by phone for worsening of their current condition or the appearance of new urologic symptoms. Compliance is encouraged with any medications and followup testing that is ordered. It is a privilege to participate in the urologic care of your patient. If you have any questions or concerns regarding treatment for the above conditions, or other urologic issues, please do not hesitate to contact me. The office telephone contact is [phone]. This note is constructed using voice recognition software. While every effort has been made to ensure accuracy pattern filer errors may have been included. Yours sincerely, Dr Wesly Tejada MD, MAY [facility] - Urology Providers of Expert, Compassionate Care for the Genitourinary System Coding Level of Care Code Tele Est Pt Level 3 (20328) Diagnoses Bone metastases C79.51 Prostate cancer metastatic to bone C61; C79.51
== END 2023-08-15 12:09 | disposition home or self-care (01) ==
LOC: HO.HUSH 11:26
PROVIDERS: PCP Physician Assistant; Visit Provider Urology
DX: C79.51 Secondary malignant neoplasm of bone (principal); C61 Malignant neoplasm of prostate
CPT/HCPCS: 99213

== ENCOUNTER → 2023-08-15 11:26 | Outpatient (BNVA) | payer OTHER, SELFPAY | PROVIDERS: PCP Physician Assistant; Visit Provider Urology ==

== ENCOUNTER 2023-11-14 12:49 | Outpatient (AMB) | payer OTHER, SELFPAY ==
--- NOTE | 2023-11-14 12:51 | MHC.OFFVIS ---
Intake Visit Reasons: 3M Follow Up- PSA(SET) Intake Note: Patient is present for 3 month f/u PSA Urology Medication:sildenafil,tadalafil Antibiotic Allergy:none Blood Thinner:none Raw Products Director Required: No Allergies No Known Allergies Allergy (Verified 11/14/23 12:53) HPI Comments Details: Chaparro Shah is a very pleasant male. He is a patient of Dr Waterman. He is seen for the following urologic conditions. - prostate cancer - rising PSA from prostate cancer - metastatic disease - erectile dysfunction 11/13 P 0.5 Currently almost complete 6 cycles of Plavicto (Lu177) Does need to keep up GnRH This will be scheduled Six-month follow-up lab work Continuing to receive monthly Xgeva with Dr. Michaels 08/13 PSA 0.77 T 7 Undergoing therapy in [place] with lutetium Has completed 2 cycles 05/13 PSA 1.1 PSMA PET scan in [place], results: Abnormal bone lesions consistent with active tumor. Involving T10, L4, left scapular area. Right ala of sacrum. Also noted to have positive retroperitoneal lymph nodes. - under assessment for LuPSMA [place] Dr Lopez 02/11 - PET-CT - progressive bony disease, new retroperitoneal lesion - good performance status Does report ongoing back pain Has been undergoing denosumab therapy with Dr. Michaels. Current recommendation is for evaluation for LuPSMA therapy with radiation oncology 01/12 PSA 2.7 T 204 - GnRH Completed 7 cycles of taxotere 07/12 PSMA scan no new osseous activity. Does have widespread bony metastases. 07/08/22 GnRH Labs 05/12 0.4, 11/12 P 0.7 T 145 Prostate cancer: High-grade Initial therapy: 09/2015 EXBRT plus 18m hormone therapy [facility] Secondary therapy: 06/11 Metastatic disease - 12/[address] Michaels 06/11 GnRH with oral antiandrogen (Zytiga and prednisone) - bone scan positive - denosumab adjuvant Prostate cancer was diagnosed September 2015 Dr Tejada. Diagnosis was reached by needle biopsy, for elevated PSA, PSA at diagnosis 9.5 The [place] grade is September 2015 - At biopsy, left base, 3+4 = 7, left mid gland, 4+5 = 9, left apex, 3+4 = 7 07/01 cores - all left ranging from 5-90%, perineural invasion, base x 2. TNM Classification of Malignant Tumours (TNM) T1c 12/05 MRI - PAWAN , T3a 12/05 Bone Scan - Negative. The D'Michael (NCCN) risk category is High Risk (PSA > 20, Gl 8+, T3). Initial therapy included Primary treatment, External beam radiation with 18m hormone ablation - Dr Gudino 12/2015 GnRH - 06/01/16, next 11/15/1605/07 5AR TIW 08/07 stop 5AR. Recent labs included a PSA (prostate-specific antigen)n 06/06 < 0.1 , a testosterone 06/06 13 09/05 , a PSA (prostate-specific antigen), < 0.1, , a testosterone 7, 12/06 , a PSA (prostate-specific antigen) < 0.1, T 18, 02/05 , a PSA (prostate-specific antigen) < 0.1 05/07 a PSA (prostate-specific antigen) 0.2, , a testosterone 247, 08/07 , a PSA (prostate-specific antigen) 0.3, T 314, 12/07 , a PSA (prostate-specific antigen) 0.7 T 340 04/10 PSA 0.8, 10/08 PSA 0.9, T 465 04/11 1.0, 10/09 1.2, 04/12 0.8, T 600, 12/10 PSA 1.7 T 480, 04/13 9.5, 09/10 1.1 <1, 12/11 11, 01/11 3.4 Imaging included Oct 2015 , an MRI (magnetic resonance imaging) - evidence of extracapsular extension by 5 mm. , a bone scan - negative - 05/11 PSMA PET-CT SCAN concern for metastatic bone disease - 06/11 bone scan positive for metastatic prostate cancer - 10/11 PSMA progressive disease - 07/12 PSMA stabilized disease Associated conditions erectile dysfunction Yes Therapeutic plan: Continue GnRH Erectile dysfunction Good response tadalafil 10 mg daily As sildenafil 100 mg as needed PFSH Medical History Drug-induced erectile dysfunction High cholesterol Blood in the stool Hypothyroidism Elevated PSA Erectile dysfunction following radiation therapy Urgency-frequency syndrome Nocturia Prostate cancer Surgical History History of surgery Family History Sister Breast cancer Paternal Uncle Cancer Social History Household Members: Spouse and Children Housing: House Are you a primary reservoir caretaker to a significant other at home: No Do you presently have visiting nurse or other home services: No Patient Tobacco Use Status: Never used Tobacco service: Yes Current occupational status: retired Review of Systems Const Denies chills and Denies fever(s) Card Reports no additional complaints and Denies syncope Resp Denies cough GI Denies abdominal pain and Denies heartburn Reports as per HPI and Denies change in libido Neuro Denies syncope Psych Denies change in libido Endo Denies change in libido Physical Exam Const General: cooperative, healthy appearing, comfortable and no acute distress Orientation/consciousness: patient oriented x3 HEENT Face and sinus: Yes normal facial exam Mouth: moist mucous membranes Neck Neck: Yes normal visual inspection, Yes full ROM and Yes trachea midline Chest Chest palpation & inspection: normal inspection of the chest Resp Effort & Inspection: normal respiratory effort, able to speak in complete sentences and no respiratory distress GI Inspection: Yes normal to inspection Back/Spine/Pelvis Cervical Spine: normal cervical lordosis Thoracic/Lumbar Spine: thoracic and lumbar spine normal to inspection Skin General skin exam: no rashes or lesions noted Neuro General: patient oriented x3, gait normal, tone normal and moves all extremities Extrem General: Yes normal to inspection and Yes capillary refill normal Assessment & Plan Assessment & Plan (1) Erectile dysfunction following radiation therapy: Code(s): N52.35 - Erectile dysfunction following radiation therapy Category: Medical (2) Prostate cancer: Comment: High-grade prostate cancer external beam radiation 2015 Code(s): C61 - Malignant neoplasm of prostate Category: Medical (3) Bone metastases: Code(s): C79.51 - Secondary malignant neoplasm of bone Category: Medical Plan Needs GnRH Six-month follow-up lab work GnRH Orders: Orders Prostate Specific Antigen 6 Months C61 - Malignant neoplasm of prostate, C79.51 - Secondary malignant neoplasm of bone Testosterone, Total 6 Months C61 - Malignant neoplasm of prostate, C79.51 - Secondary malignant neoplasm of bone Patient Instructions: Imaging studies, laboratory and physical exam results were discussed and reviewed in detail. No major barriers to patient understanding were identified. An opportunity to ask questions regarding the treatment plan was provided. All questions were answered. The patient expressed understanding and agreement with the above treatment plan. The patient is aware they should contact our office by phone for worsening of their current condition or the appearance of new urologic symptoms. Compliance is encouraged with any medications and followup testing that is ordered. It is a privilege to participate in the urologic care of your patient. If you have any questions or concerns regarding treatment for the above conditions, or other urologic issues, please do not hesitate to contact me. The office telephone contact is [phone]. This note is constructed using voice recognition software. While every effort has been made to ensure accuracy material reprocessing associate errors may have been included. Yours sincerely, Dr Wesly Tejada MD, MAY [facility] [place] - Urology Providers of Expert, Compassionate Care for the Genitourinary System Coding Level of Care Code Est Pt Level 3 (73814) Diagnoses Erectile dysfunction following radiation therapy N52.35 Prostate cancer C61 Bone metastases C79.51
== END 2023-11-14 13:20 | disposition home or self-care (01) ==
PROVIDERS: PCP Physician Assistant; Visit Provider Urology
DX: N52.35 Erectile dysfunction following radiation therapy (principal); C61 Malignant neoplasm of prostate; C79.51 Secondary malignant neoplasm of bone
CPT/HCPCS: 99213

== ENCOUNTER → 2023-11-14 12:49 | Outpatient (BNVA) | payer OTHER, SELFPAY | PROVIDERS: PCP Physician Assistant; Visit Provider Urology ==

== ENCOUNTER 2023-12-18 09:00 | Outpatient (AMB) | payer OTHER, SELFPAY ==
--- NOTE | 2023-12-18 09:30 | AM.OFFVISNUR ---
Intake Visit Reasons: Eligard/ Prolia(PA set) Allergies No Known Allergies Allergy (Verified 12/12/23 11:44) Office Meds Eligard (6 month) 45 mg (6 month) subcutaneous syringe Performing Provider: Wesly Tejada MD [facility] Administered by: Bacilio Johnson LPN on 12/18/23 09:30 Dose Route Admin Location Dispensed Lot Number Expiration Date [facility] Application Programmer Analyst 45 mg subcut left arm 45 mg [id number] 12/21/24 80916-986-62 [employer]. Assessment & Plan Assessment & Plan Orders: Orders AMB Leuprolide Injection - Practice Supplied Today C61 - Malignant neoplasm of prostate, C79.51 - Secondary malignant neoplasm of bone Medications: New Eligard (6 month) (leuprolide acetate (6 month)) 45 mg subcut ONCE 1 ea 0RF NS C61 - Malignant neoplasm of prostate, C79.51 - Secondary malignant neoplasm of bone
== END 2023-12-18 09:45 | disposition home or self-care (01) ==
PROVIDERS: PCP Physician Assistant; Visit Provider Urology
DX: C61 Malignant neoplasm of prostate (principal); C79.51 Secondary malignant neoplasm of bone

== ENCOUNTER → 2023-12-18 09:00 | Outpatient (BNVA) | payer OTHER, SELFPAY | PROVIDERS: PCP Physician Assistant; Visit Provider Urology | DX: C61 Malignant neoplasm of prostate (principal); C79.51 Secondary malignant neoplasm of bone | CPT/HCPCS: 96402; J9217 ==

== ENCOUNTER 2024-02-19 10:14 | Outpatient (REF) | payer OTHER, SELFPAY ==
--- OUTSIDE RECORDS SUMMARY | 2024-02-19 10:18 | XMS_ITS ---
Author Organization [facility], Address [address] [place] [address] Care Team Providers Care Matcher Name Role Phone Donald Moore [phone] ALLERGIES, ADVERSE REACTIONS, ALERTS None MEDICATIONS Medication Code Code System Start Date Stop Date Route Dosage Directions Fill Instructions pantoprazole 0 RxNorm oral levothyroxine 0 RxNorm oral Cialis 0 RxNorm oral Vitamin D3 0 RxNorm oral PROBLEMS Problem Name Code Code System Start Date End Date Stat Hypothyroidism, unspecified 97479486 [facility] Active Gastro-esophageal reflux disease 682746363 [facility] Active Acute upper respiratory infe ction, unspecified 30873066 [facility] 10/27/2022 Active ENCOUNTERS Encounter Diagnosis Code Code System Date Stat Acute upper respiratory infection, unspecified 19701071 [facility] 10/27/2022 Active IMMUNIZATIONS * None VITAL SIGNS Code Code System Vitals Name Date Value and Un its 8462-4 [facility] Blood Pressure-Diastolic 10/27/2022 81 mmHg 8480-6 [facility] Blood Pressure-Systolic 10/27/2022 1 15 mmHg 8867-4 [facility] Heart Rate 10/27/2022 118 /min 9279-1 [facility] Respiratory Rate 10/27/2022 18 /min 8310-5 [facility] Body Temperature 10/27/2022 99.3 F 71225-8 [facility] Oxygen Saturation 10/27/2022 96 % SOCIAL HISTORY * None PROCEDURES * None RESULTS Test Code Code System Description Result Value Date Ref erence Range Loinc Strep A Not Detected 10/27/2022 Not Det ected Loinc SARS-CoV-2 Not Detected 10/27/2022 Not De tected Loinc Flu A Not Detected 10/27/2022 Not Det ected Loinc Flu B Not Detected 10/27/2022 Not Det ected MEDICAL EQUIPMENT * Patient has no history of implantable devices ASSESSMENT Assessment You have an upper respirator y infection.This is an infection involving the nose, throat and larynx, almost always caused by a virus. The infection rarely spreads or leads to serious long-term problems. Since the infection is caused by a virus, antibiotics are not helpful.It may help your symptoms to use a decongestant nose spray to open the nasal passages and permit drainage. Afrin nasal spray (or a similar decongestant spray) can be used twice a day for up to four days. You may develop tolerance to it if used longer than this.You may take Tylenol 650mg orally every 6 hoursOver the counter Flonase nasal spray can help with any congestion/sinus pressure. With time this can also help alleviate ear pressure that occurs as a result of the congestion.Over the counter Ciales Mist Nasal Saline can be used a few times daily to help irrigate the nose/sinuses to help with congestion.Warm tea with honey can help the throat and cough.Return or get rechecked by your doctor if you get high or prolonged fever (over 101 F orally), worsening pain, swelling over your face or eyes, earache, shortness of breath or chest pain, severe headache, stiff neck, vomiting, or a rash.If you are not improving after 10 days of illness you should be re-evaluate. Respiratory tract infections are usually spread by coughing; the virus lands on surfaces and is then picked up on the hands and carried to the nose or mouth - so good hand washing is important to avoid spreading the virus. TREATMENT PLAN Type Description Date APPOINTMENT If not feeling mallika r in 3 day(s), please see your primary care physician. If you do not have a primary care physician, please return to this clinic. 10/27/2022 Labs Tests Test Name Code Code System Date SARS-CoV-2 & Flu A/B Multipl ex Assay, Amplified Probe Molecular RT-PCR / NAAT 23859 CPT 10/27/2022 Strep A, DNA, Amplified Probe PCR 07589 CPT 10/27/2022 GOALS * None HEALTH CONCERNS * No Health Concerns FUNCTIONAL AND COGNITIVE STATUS * None CONSULTATION NOTES * None DISCHARGE SUMMARY NOTES * None HISTORY AND PHYSICAL NOTES * None IMAGING NOTES * None LABORATORY REPORT NARRATIVE NOTES * None PATHOLOGY REPORT NARRATIVE NOTES * None PROGRESS NOTES * None
[2024-02-19 11:40] LABS: Anion Gap 11 (12-20); Blood Urea Nitrogen 12 mg/dL (9-16); Calcium 9.4 mg/dL (8.4-10.2); Carbon Dioxide 27 mmol/L (22-29); Chloride 108 mmol/L (96-108); Cholesterol 308 mg/dL (<200); Estimated Glomerular Filt Rate > 60; Glucose Random 101 mg/dL (60-115); HDL Cholesterol 48 mg/dL (>40); LDL Cholesterol Calculated 210 mg/dL (<100); Potassium 4.8 mmol/L (3.3-5.1); Sodium 141 mmol/L (135-145); Triglycerides 250 mg/dL (<150)
[2024-02-19 11:54] LABS: TSH reflex Free T4 2.42 uIU/mL (0.32-4.0)
== END 2024-02-19 10:15 | disposition home or self-care (01) ==
LOC: HO.LAB 10:14
PROVIDERS: Absent Provider Internal Medicine Medical Oncology; PCP Physician Assistant; Visit Provider Physician Assistant
DX: E78.5 Hyperlipidemia, unspecified (principal); E03.9 Hypothyroidism, unspecified
CPT/HCPCS: 36415; 80048; 80061; 84443

== ENCOUNTER 2024-06-18 09:24 | Outpatient (AMB) | payer OTHER, SELFPAY ==
--- NOTE | 2024-06-18 09:30 | MHC.OFFVIS ---
Intake Visit Reasons: GnRH/6m follow up Intake Note: Patient is present for 6M/[facility] Urology Medication:TADALAFIL Antibiotic Allergy:NONE Blood Thinner:NONE Lean Process Deployment Consultant Required: No Allergies No Known Allergies Allergy (Verified 06/18/24 09:31) HPI Comments Details: Chaparro Shah is a very pleasant male. He is a patient of Dr Waterman. He is seen for the following urologic conditions. - prostate cancer - rising PSA from prostate cancer - metastatic disease - erectile dysfunction 06/14 P 0.5 T 7 GnRH today Reviewed PSMA and CT scan from [place]. Areas on his ribs that are suspicious for lesions however not definitive. He is taking a break from therapy. They are considering him for radium 225 11/13 P 0.5 Currently almost complete 6 cycles of Plavicto (Lu177) Continuing to receive monthly Xgeva with Dr. Michaels 08/13 PSA 0.77 T 7 Undergoing therapy in [place] with lutetium Has completed 2 cycles 05/13 PSA 1.1 PSMA PET scan in [place], results: Abnormal bone lesions consistent with active tumor. Involving T10, L4, left scapular area. Right ala of sacrum. Also noted to have positive retroperitoneal lymph nodes. - under assessment for [facility] [place] Dr Lopez 02/11 - PET-CT - progressive bony disease, new retroperitoneal lesion - good performance status Does report ongoing back pain Has been undergoing denosumab therapy with Dr. Michaels. Current recommendation is for evaluation for LuPSMA therapy with radiation oncology 01/12 PSA 2.7 T 204 - GnRH Completed 7 cycles of taxotere 07/12 PSMA scan no new osseous activity. Does have widespread bony metastases. 07/08/22 GnRH Labs 05/12 0.4, 11/12 P 0.7 T 145 Prostate cancer: High-grade Initial therapy: 09/2015 EXBRT plus 18m hormone therapy [facility] Secondary therapy: 06/11 Metastatic disease - 12/[address] Michaels 06/11 GnRH with oral antiandrogen (Zytiga and prednisone) - bone scan positive - denosumab adjuvant Prostate cancer was diagnosed September 2015 Dr Tejada. Diagnosis was reached by needle biopsy, for elevated PSA, PSA at diagnosis 9.5 The Shahana grade is September 2015 - At biopsy, left base, 3+4 = 7, left mid gland, 4+5 = 9, left apex, 3+4 = 7 07/01 cores - all left ranging from 5-90%, perineural invasion, base x 2. TNM Classification of Malignant Tumours (TNM) T1c 12/05 MRI - PAWAN , T3a 12/05 Bone Scan - Negative. The D'Michael (NCCN) risk category is High Risk (PSA > 20, Gl 8+, T3). Initial therapy included Primary treatment, External beam radiation with 18m hormone ablation - Dr Gudino 12/2015 GnRH - 06/01/16, next 11/15/1605/07 5AR TIW 08/07 stop 5AR. Recent labs included a PSA (prostate-specific antigen)n 06/06 < 0.1 , a testosterone 06/06 13 09/05 , a PSA (prostate-specific antigen), < 0.1, , a testosterone 7, 12/06 , a PSA (prostate-specific antigen) < 0.1, T 18, 02/05 , a PSA (prostate-specific antigen) < 0.1 05/07 a PSA (prostate-specific antigen) 0.2, , a testosterone 247, 08/07 , a PSA (prostate-specific antigen) 0.3, T 314, 12/07 , a PSA (prostate-specific antigen) 0.7 T 340 04/10 PSA 0.8, 10/08 PSA 0.9, T 465 04/11 1.0, 10/09 1.2, 04/12 0.8, T 600, 12/10 PSA 1.7 T 480, 04/13 9.5, 09/10 1.1 <1, 12/11 11, 01/11 3.4 Imaging included Oct 2015 , an MRI (magnetic resonance imaging) - evidence of extracapsular extension by 5 mm. , a bone scan - negative - 05/11 PSMA PET-CT SCAN concern for metastatic bone disease - 06/11 bone scan positive for metastatic prostate cancer - 10/11 PSMA progressive disease - 07/12 PSMA stabilized disease Associated conditions erectile dysfunction Yes Therapeutic plan: Continue GnRH Erectile dysfunction Good response tadalafil 10 mg daily As sildenafil 100 mg as needed PFSH Medical History Drug-induced erectile dysfunction High cholesterol Blood in the stool Hypothyroidism Elevated PSA Erectile dysfunction following radiation therapy Urgency-frequency syndrome Nocturia Prostate cancer Surgical History History of surgery Family History Sister Breast cancer Paternal Uncle Cancer Social History Household Members: Spouse and Children Housing: House Are you a primary hourly caregiver to a significant other at home: No Do you presently have visiting nurse or other home services: No Patient Tobacco Use Status: Never used Tobacco service: Yes Current occupational status: retired Review of Systems Const Denies chills and Denies fever(s) Card Reports no additional complaints and Denies syncope Resp Denies cough GI Denies abdominal pain and Denies heartburn Reports as per HPI and Denies change in libido Neuro Denies syncope Psych Denies change in libido Endo Denies change in libido Physical Exam Const General: cooperative, healthy appearing, comfortable and no acute distress Orientation/consciousness: patient oriented x3 HEENT Face and sinus: Yes normal facial exam Mouth: moist mucous membranes Neck Neck: Yes normal visual inspection, Yes full ROM and Yes trachea midline Chest Chest palpation & inspection: normal inspection of the chest Resp Effort & Inspection: normal respiratory effort, able to speak in complete sentences and no respiratory distress GI Inspection: Yes normal to inspection Back/Spine/Pelvis Cervical Spine: normal cervical lordosis Thoracic/Lumbar Spine: thoracic and lumbar spine normal to inspection Skin General skin exam: no rashes or lesions noted Neuro General: patient oriented x3, gait normal, tone normal and moves all extremities Extrem General: Yes normal to inspection and Yes capillary refill normal Office Meds Eligard (6 month) 45 mg (6 month) subcutaneous syringe Performing Provider: Wesly Tejada MD [facility] Administered by: Bacilio Johnson LPN on 06/18/24 09:42 Dose Route Admin Location Dispensed Lot Number Expiration Date [facility] [employer] 45 mg subcut left arm 45 mg [id number] 09/20/25 40530-265-70 [employer]. Assessment & Plan Assessment & Plan (1) Erectile dysfunction following radiation therapy: Code(s): N52.35 - Erectile dysfunction following radiation therapy Category: Medical (2) Prostate cancer metastatic to bone: Code(s): C61 - Malignant neoplasm of prostate; C79.51 - Secondary malignant neoplasm of bone Category: Medical Plan Check lab work in six-month. Would consider break from GnRH if T remains low. Orders: Orders Prostate Specific Antigen 6 Months C61 - Malignant neoplasm of prostate, C79.51 - Secondary malignant neoplasm of bone AMB Leuprolide Injection - Practice Supplied Today C61 - Malignant neoplasm of prostate, C79.51 - Secondary malignant neoplasm of bone Testosterone, Total 6 Months C61 - Malignant neoplasm of prostate, C79.51 - Secondary malignant neoplasm of bone Patient Instructions: This note is constructed using voice recognition software. While every effort has been made to ensure accuracy mechanic industrial truck errors may have been included. Imaging studies, laboratory and physical exam results were discussed and reviewed in detail. No major barriers to patient understanding were identified. An opportunity to ask questions regarding the treatment plan was provided. All questions were answered. The patient expressed understanding and agreement with the above treatment plan. The patient is aware they should contact our office by phone for worsening of their current condition or the appearance of new urologic symptoms. Compliance is encouraged with any medications and followup testing that is ordered. It is a privilege to participate in the urologic care of your patient. If you have any questions or concerns regarding treatment for the above conditions, or other urologic issues, please do not hesitate to contact me. The office telephone contact is [phone]. Sincerely, Dr Wesly Tejada MD, MAY [facility] - Urology Compassionate Specialist Care for the Genitourinary System Coding Level of Care Code Est Pt Level 4 (64342) Complex EM visit Add On G2211 Diagnoses Erectile dysfunction following radiation therapy N52.35 Prostate cancer metastatic to bone C61; C79.51
== END 2024-06-18 10:04 | disposition home or self-care (01) ==
LOC: HO.HUSH 09:25
PROVIDERS: PCP Physician Assistant; Visit Provider Urology
DX: N52.35 Erectile dysfunction following radiation therapy (principal); C61 Malignant neoplasm of prostate; C79.51 Secondary malignant neoplasm of bone
CPT/HCPCS: 99214

== ENCOUNTER → 2024-06-18 09:24 | Outpatient (BNVA) | payer OTHER, SELFPAY | PROVIDERS: PCP Physician Assistant; Visit Provider Urology | DX: C61 Malignant neoplasm of prostate (principal); C76.51 Malignant neoplasm of right lower limb; N52.35 Erectile dysfunction following radiation therapy | CPT/HCPCS: 96402; J9217 ==

== ENCOUNTER 2024-12-06 08:09 | Outpatient (REF) | payer OTHER, SELFPAY ==
[2024-12-06 09:37] LABS: Prostate Specific Antigen 1.30 ng/mL (<0.05-4.0)
== END 2024-12-06 08:10 | disposition home or self-care (01) ==
LOC: HO.LAB 08:09
PROVIDERS: PCP Physician Assistant; Visit Provider Urology
DX: C61 Malignant neoplasm of prostate (principal); C79.51 Secondary malignant neoplasm of bone; Z12.5 Encounter for screening for malignant neoplasm of prostate
CPT/HCPCS: 36415; 84153; 84403

== ENCOUNTER 2024-12-20 09:31 | Outpatient (AMB) | payer OTHER, SELFPAY ==
--- NOTE | 2024-12-20 09:37 | A.OFFVIS_ITS ---
Intake Visit Reasons: 6M PSA/Testosterone Intake Note: Patient is present for PSA/Testo results Urology Med: Sildenafil, Tadalafil, Xtandi Antibiotic Allergy: None Blood Thinner: None Wildlife Policy Professional Required: No Accompanied by: Self / Same As Patient Allergies No Known Allergies Allergy (Verified 12/20/24 09:40) HPI Comments Details: Chaparro Shah is a very pleasant male. He is a patient of Dr Waterman. He is seen for the following urologic conditions. - prostate cancer - rising PSA from prostate cancer - metastatic disease - erectile dysfunction GnRH now, Six-month follow-up GnRH 12/14 P 1.3 T 12 PSA doubled since May but from low base Receiving radium 225 in [place] They would like to continue with GnRH - remains on Xtandi and receiving Xgeva 06/14 P 0.5 T 7 GnRH today Reviewed PSMA and CT scan from [place]. Areas on his ribs that are suspicious for lesions however not definitive. He is taking a break from therapy. They are considering him for radium 225 11/13 P 0.5 Currently almost complete 6 cycles of Plavicto (Lu177) Continuing to receive monthly Xgeva with Dr. Michaels 08/13 PSA 0.77 T 7 Undergoing therapy in [place] with lutetium Has completed 2 cycles 05/13 PSA 1.1 PSMA PET scan in [place], results: Abnormal bone lesions consistent with active tumor. Involving T10, L4, left scapular area. Right ala of sacrum. Also noted to have positive retroperitoneal lymph nodes. [facility] [place] [facility] - PET-CT - progressive bony disease, new retroperitoneal lesion - good performance status Does report ongoing back pain Has been undergoing denosumab therapy with Dr. Michaels. Current recommendation is for evaluation for LuPSMA therapy with radiation oncology 01/12 PSA 2.7 T 204 - GnRH Completed 7 cycles of taxotere 07/12 PSMA scan no new osseous activity. Does have widespread bony metastases. 07/08/22 GnRH Labs 05/12 0.4, 11/12 P 0.7 T 145 Prostate cancer: High-grade Initial therapy: 09/2015 EXBRT plus 18m hormone therapy [facility] Secondary therapy: 06/11 Metastatic disease - 12/[address] Michaels 06/11 GnRH with oral antiandrogen (Zytiga and prednisone) - bone scan positive - denosumab adjuvant Prostate cancer was diagnosed September 2015 Dr Tejada. Diagnosis was reached by needle biopsy, for elevated PSA, PSA at diagnosis 9.5 The Shahana grade is September 2015 - At biopsy, left base, 3+4 = 7, left mid gland, 4+5 = 9, left apex, 3+4 = 7 / cores - all left ranging from 5-90%, perineural invasion, base x 2. TNM Classification of Malignant Tumours (TNM) T1c 12/05 MRI - PAWAN , T3a 12/05 Bone Scan - Negative. The D'Michael (NCCN) risk category is High Risk (PSA > 20, Gl 8+, T3). Initial therapy included Primary treatment, External beam radiation with 18m hormone ablation - Dr Gudino 12/2015 GnRH - 06/01/16, next 11/15/1605/07 5AR TIW 08/07 stop 5AR. Recent labs included a PSA (prostate-specific antigen)n 06/06 < 0.1 , a testosterone 06/06 13 09/05 , a PSA (prostate-specific antigen), < 0.1, , a testosterone 7, 12/06 , a PSA (prostate-specific antigen) < 0.1, T 18, 02/05 , a PSA (prostate- specific antigen) < 0.1 05/07 a PSA (prostate-specific antigen) 0.2, , a testosterone 247, 08/07 , a PSA (prostate-specific antigen) 0.3, T 314, 12/07 , a PSA (prostate-specific antigen) 0.7 T 340 04/10 PSA 0.8, 10/08 PSA 0.9, T 465 04/11 1.0, 10/09 1.2, 04/12 0.8, T 600, 12/10 PSA 1.7 T 480, 04/13 9.5, 09/10 1.1 <1, 12/11 11, 01/11 3.4 Imaging included Oct 2015 , an MRI (magnetic resonance imaging) - evidence of extracapsular extension by 5 mm. , a bone scan - negative - 05/11 PSMA PET-CT SCAN concern for metastatic bone disease - 06/11 bone scan positive for metastatic prostate cancer - 10/11 PSMA progressive disease - 07/12 PSMA stabilized disease Associated conditions erectile dysfunction Yes Therapeutic plan: Continue GnRH Erectile dysfunction Good response tadalafil 10 mg daily As sildenafil 100 mg as needed PFSH Medical History Drug-induced erectile dysfunction High cholesterol Blood in the stool Hypothyroidism Elevated PSA Erectile dysfunction following radiation therapy Urgency-frequency syndrome Nocturia Prostate cancer Surgical History History of surgery Family History Sister Breast cancer Paternal Uncle Cancer Social History Household Members: Spouse and Children Housing: House Are you a primary group care worker to a significant other at home: No Do you presently have visiting nurse or other home services: No Patient Tobacco Use Status: Never used Tobacco service: Yes Current occupational status: retired Review of Systems Const Denies chills and Denies fever(s) Card Reports no additional complaints and Denies syncope Resp Denies cough GI Denies abdominal pain and Denies heartburn Reports as per HPI and Denies change in libido Neuro Denies syncope Psych Denies change in libido Endo Denies change in libido Physical Exam Const General: cooperative, healthy appearing, comfortable and no acute distress Orientation/consciousness: patient oriented x3 HEENT Face and sinus: Yes normal facial exam Mouth: moist mucous membranes Neck Neck: Yes normal visual inspection, Yes full ROM and Yes trachea midline Chest Chest palpation & inspection: normal inspection of the chest Resp Effort & Inspection: normal respiratory effort, able to speak in complete sentences and no respiratory distress GI Inspection: Yes normal to inspection Back/Spine/Pelvis Cervical Spine: normal cervical lordosis Thoracic/Lumbar Spine: thoracic and lumbar spine normal to inspection Skin General skin exam: no rashes or lesions noted Neuro General: patient oriented x3, gait normal, tone normal and moves all extremities Extrem General: Yes normal to inspection and Yes capillary refill normal Assessment & Plan Assessment & Plan (1) Prostate cancer metastatic to bone: Code(s): C61 - Malignant neoplasm of prostate; C79.51 - Secondary malignant neoplasm of bone Category: Medical Plan Six-month follow-up Patient Instructions: This note is constructed using voice recognition software. While every effort has been made to ensure accuracy concrete block plant supervisor errors may have been included. Imaging studies, laboratory and physical exam results were discussed and reviewed in detail. No major barriers to patient understanding were identified. An opportunity to ask questions regarding the treatment plan was provided. All questions were answered. The patient expressed understanding and agreement with the above treatment plan. The patient is aware they should contact our office by phone for worsening of their current condition or the appearance of new urologic symptoms. Compliance is encouraged with any medications and followup testing that is ordered. It is a privilege to participate in the urologic care of your patient. If you have any questions or concerns regarding treatment for the above conditions, or other urologic issues, please do not hesitate to contact me. The office telephone contact is [phone]. Sincerely, Dr Wesly Tejada MD, MAY [facility] - Urology Compassionate Specialist Care for the Genitourinary System Coding Level of Care Code Est Pt Level 3 (37925) Complex EM visit Add On G2211 Diagnoses Prostate cancer metastatic to bone C61; C79.51
--- OUTSIDE RECORDS SUMMARY | 2024-12-20 10:33 | XMS_ITS | Encounter Summary ---
Author Organization [facility] Address [address] [place] [address] [place] [phone] Phone Care Team Providers Care Sink Cutter Name Role Phone Self-Referred, Patient Unavailable Unavailab Donald Dye Primary Care Provider Celio Michaels MD Unavailable [phone] Wesly Tejada MD Unavailable [phone] Encounter Details Date Type Department Care Team (Late Contact Info) Description 06/05/2024 Procedure Pass [facility] Imaging Department, [facility] [place], [place] [address] [place] [id number] Social History Tobacco Use Types Packs/Day Years Used Date Smoking Tobacco: Never Smokeless Tobacco: Never Education Answer Date Recorded Are you interested in more education? Not on margarita e 06/18/2022 Are you concerned about learning? Not on file 06/18/2022 No 06/18/2022 No 06/18/2022 Digital Access Answer Date Recorded No 07/19/2022 No 07/19/2022 Reliable internet access at home? Not on file 07/19/2022 Device with a working camera? Not on file Sex and Gender Information Value Date Recorded Sex Assigned at Male 03/23/2022 10:32 AM EST Legal Sex Male 10:29 AM EST Gender Identity Male 03/23/2022 10:32 AM EST Sexual Orientation Straight 03/23/2022 10 :32 AM EST documented as of this encounter Plan of Treatment Upcoming Encounters Date Type Department Care Team (Late st Contact Info) Description 01/08/2025 5:15 PM EST Appointment [facility] [place], PET/CT [address] [address] Alcira Becerra PA-C [address] [place] [id number] [email or web address] Isaias Lopez [address] [address] [email or web address] 01/10/2025 9:00 AM EST Blood Draw Laboratory Services, [facility] [address] [address] Isaias Lopez [address] [address] [email or web address] 01/10/2025 10:00 AM EST Office Visit [facility], [facility] [address] [address] Tera Hope, CARLY [address] [place] [address] [place] [address] [email or web address] 01/10/2025 11:00 AM EST Appointment [facility] [place], Nuclear Medicine [address] [place] [address] Chava Mauro, KYLE [address] [place] [id number] [email or web address] Isaias Lopez [address] [address] [email or web address] 02/07/2025 8:00 AM EST Blood Draw Laboratory Services, [facility] at [address] [address] Isaias Lopez, [address] [address] [email or web address] 02/07/2025 9:00 AM EST Office Visit [facility], [address] [address] Tera Hope, [address] [place] [address] [email or web address] 02/07/2025 10:00 AM EST Appointment [facility] [place], Nuclear Medicine [address] [place] [address] Chava Mauro, [address] [address] [email or web address] Isaias Lopez, [address] [address] [email or web address] 03/07/2025 9:30 AM EST Blood Draw Laboratory Services, [facility] at [address] [address] Isaias Lopez, [address] [address] [email or web address] 03/07/2025 10:30 AM EST Office Visit [facility], [facility] [place] [address] [facility] [address] [place] [address] Isaias Lopez, [address] [address] [email or web address] 03/07/2025 11:30 AM EST Appointment [facility] [place], Nuclear Medicine [address] [facility] [address] [place] [address] Chava Mauro, KYLE [address] [place] [phone] [email or web address] Isaias Lopez, [address] [address] [email or web address] documented as of this encounter Visit Diagnoses Not on filedocumented in this encounter Care Teams Sink Cutter Relationship Specialty Start Date End Date Donald Bragg PA [address] [place] [address] PCP - General Physician Design Technician 03/23/22 Self-Referred, Patient Referring Physician 03/23/22 Celio Michaels MD [address] [place] [address] 04/15/22 Wesly Tejada MD [address] [place] [address] Urology 11/23/23 documented as of this encounter Additional Source Comments The information contained in this document represents components of the legal health record. It is not the complete legal health record.[facility]
--- OUTSIDE RECORDS SUMMARY | 2024-12-20 10:33 | XMS_ITS | Encounter Summary ---
Author Organization [facility] Address [address] [place] [address] [place] [phone] Phone Care Team Providers Care Woodworking Shop Laborer Name Role Phone Self-Referred, Patient Unavailable Unavailab oDnald Dye Primary Care Provider Celio Michaels MD Unavailable [phone] Wesly Tejada MD Unavailable Encounter Details Date Type Department Care Team (Late Contact Info) Description 06/05/2024 Procedure Pass Farida [facility] Imaging Department, [facility] [place], [place] 450 [facility], Floor [address] [place] [id number] Social History Tobacco Use Types Packs/Day Years [...] Info) Description 01/08/2025 5:15 PM EST Appointment [facility], PET/CT [address] [address] Alcira Becerra PA-C [address] [place] [address] [email or web address] Isaias Lopez [address] [address] Alana@[facility] 01/10/2025 9:00 AM EST Blood Draw Laboratory Services, [facility] at [address] [address] Isaias Lopez [address] [address] Alana@[facility] 01/10/2025 10:00 AM EST Office Visit [facility], [facility] at [address] [address] Tera Hope, CARLY [address] [place] [address] [place] [address] Emilee@[facility] 01/10/2025 11:00 AM EST Appointment [facility], Nuclear Medicine [address] [place] [address] Chava Mauro, KYLE [address] [place] [address] Annie@[facility] Isaias Lopez [address] [address] Alana@[facility] 02/07/2025 8:00 AM EST Blood Draw Laboratory Services, [facility] at [address] [address] Isaias Lopez, [address] [address] Alana@[facility] 02/07/2025 9:00 AM EST Office Visit [facility], [address] [address] Tera Hope, [address] [place] [address] Emilee@[facility] 02/07/2025 10:00 AM EST Appointment [facility], Nuclear Medicine [address] [place] [address] Chava Mauro, [address] [address] Annie@[facility] Isaias Lopez, [address] [address] Alana@[facility] 03/07/2025 9:30 AM EST Blood Draw Laboratory Services, [facility] at [address] [address] Isaias Lopez, [address] [address] Alana@[facility] 03/07/2025 10:30 AM EST Office Visit [facility], [facility] 300 [facility] 4th [place] [address] Isaias Lopez, [address] [address] Alana@[facility] 03/07/2025 11:30 AM EST Appointment [facility], Nuclear Medicine 300 [facility] 3rd [place] [address] Chava Mauro, KYLE [address] [place] [address] Annie@[facility] Isaias Lopez, [address] [address] Alana@[facility] documented as of this encounter Visit Diagnoses Not on filedocumented in this encounter Care Teams Woodworking Shop Laborer Relationship Specialty Start Date End Date Donald Bragg PA [address] [place] [address] PCP - General Physician Manufacturing Recruiter 03/23/22 Self-Referred, Patient Referring Physician 03/23/22 Celio Michaels MD [address] [place] [address] 04/15/22 Wesly Tejada MD [address] [place] [address] Urology 11/23/23 documented as of this encounter Additional Source Comments The information contained in this document represents components of the legal health record. It is not the complete legal health record.[facility]
--- OUTSIDE RECORDS SUMMARY | 2024-12-20 10:34 | XMS_ITS | Encounter Summary ---
Author Organization [facility] Address [address] [place] [address] Phone Care Team Providers Care Medical Equipment Repair Technician Name Role Phone Self-Referred, Patient Unavailable Unavailab Donald Dye Primary Care Provider [phone] Celio Michaels MD Unavailable [phone]- [phone] Wesly Tejada MD Unavailable Encounter Details Date Type Department Care Team (Late st Contact Info) Description 07/14/2023 Ancillary Orders Farida [facility] Imaging Department, [facility], Imaging Clinic [address] [place] [address] Chava Mauro, KYLE [address] [place] [address] Annie@[email or web address] Social History Tobacco Use Types Packs/Day Years [...] Info) Description 01/08/2025 5:15 PM EST Appointment [facility], PET/CT [address] [address] Alcira Becerra PA-C [address] [place] [address] [email or web address] Isaias Lopez, [address] [address] Alana@[facility] 01/10/2025 9:00 AM EST Blood Draw Laboratory Services, [facility] at [address] [address] Isaias Lopez, [address] [address] Alana@[facility] 01/10/2025 10:00 AM EST Office Visit [facility], [facility] at [address] [address] Tera Hope, CARLY [address] [place] [address] Center [place] [address] Emilee@[facility] 01/10/2025 11:00 AM EST Appointment [facility], Nuclear Medicine [address] [place] [address] Chava Mauro, EXTENSION COURSE COORDINATOR [address] [place] [address] Annie@[facility] Isaias Lopez [address] [address] Alana@[facility] 02/07/2025 8:00 AM EST Blood Draw Laboratory Services, [facility] [place] [address] [address] Isaias Lopez [address] [address] Alana@[facility] 02/07/2025 9:00 AM EST Office Visit [facility], [address] [address] Tera Hope, CORRECTIONAL NURSE [address] [place] [address] [place] [address] Emilee@[facility] 02/07/2025 10:00 AM EST Appointment [facility], Nuclear Medicine [address] [place] [address] Chava Mauro, KYLE [address] [place] [address] Annie@[facility] Isaias Lopez [address] [address] Alana@[facility] 03/07/2025 9:30 AM EST Blood Draw Laboratory Services, [place] [address] [address] Isaias Lopez, [address] [address] Alana@[facility] 03/07/2025 10:30 AM EST Office Visit [facility], [facility] at [address] [address] Isaias Lopez, [address] [address] Alana@[facility] 03/07/2025 11:30 AM EST Appointment [facility], Nuclear Medicine [address] [place] [address] Chaav Mauro NP [address] [place] [address] Annie@[facility] Isaias Lopez [address] [address] Alana@[facility] documented as of this encounter Visit Diagnoses Not on filedocumented in this encounter Additional Health Concerns Infection Onset Date Last Indicated Resolved Time COVID-19 Comment:Sx onset =12/2112/22/2023 12/24/2023 01/11/2024 1:21 A M EST documented as of this encounter Care Teams Medical Equipment Repair Technician Relationship Specialty Start Date End Date Donald Bragg PA [address] [place] [address] PCP - General Physician Travel Professional 03/23/22 Self-Referred, Patient Referring Physician 03/23/22 Celio Michaels MD 575 [place] [address] 04/15/22 Wesly Tejada MD 575 [place] [address] Urology 11/23/23 documented as of this encounter Additional Source Comments The information contained in this document represents components of the legal health record. It is not the complete legal health record.[facility]
--- OUTSIDE RECORDS SUMMARY | 2024-12-20 10:34 | XMS_ITS ---
Author Organization [facility] Address [address] [address] Phone Care Team Providers Care Lidder Name Role Phone Self-Referred, Patient Unavailable Unavailab Donald Dye Primary Care Provider Celio Michaels MD Unavailable [phone] Wesly Tejada MD Unavailable Active Problems Problem Noted Date Diagnosed Date Prostate cancer 11/17/2023 Current Treatment and Therapy Plans ACCESS AND FLUSH??(DFCI)* Plan Start Date:11/15/2024 Plan Provider:Alcira Becerra PA-C Linked Problems Prostate cancer Treatment Medications No medications scheduled. Past Treatment and Therapy Plans Oncology Therapy Plan Supplemental Plan Name Start Date Discontinue Date Treatment Medications Discontinue Reason Plan Provider Degarelix (Firmagon) Loading Dose and Maintenance Dosing 11/17/2023 09/06/2024 degarelix (FIRMAGON) a. Therapy Complete Alcira Becerra PA-C
--- OUTSIDE RECORDS SUMMARY | 2024-12-20 10:34 | XMS_ITS | Encounter Summary ---
Author Organization [facility] Address [address] [address] Phone Care Team Providers Care Materials Assistant Name Role Phone Self-Referred, Patient Unavailable Unavailab Donald Dye Primary Care Provider Celio Michaels MD Unavailable [phone] Wesly Tejada MD Unavailable Encounter Details Date Type Department Care Team (Late st Contact Info) Description 12/17/2024 Orders Only [facility], [facility] [address] [place] [address], 11th [place] [address] Alcira Becerra PA-C [address] [place] [address] [email or web address] Social History Tobacco Use Types Packs/Day Years [...] Info) Description 01/08/2025 5:15 PM EST Appointment [facility], PET/CT [address] [address] Alcira Becerra PA-C [address] [place] [address] [email or web address] Isaias Lopez [address] [address] Alana@[facility] 01/10/2025 9:00 AM EST Blood Draw Laboratory Services, [facility] at [address] [address] Isaias Lopez, [address] [address] Alana@[facility] 01/10/2025 10:00 AM EST Office Visit [facility], [facility] at [address] [address] Tera Hope, CARLY [address] [place] [address] [place] [address] Emilee@[email or web address] 01/10/2025 11:00 AM EST Appointment [facility], Nuclear Medicine [address] [place] [address] Chava Mauro, KYLE 450 [place] [address] Annie@[facility] Isaias Lopez [address] [address] Alana@[facility] 02/07/2025 8:00 AM EST Blood Draw Laboratory Services, [facility] at [address] [address] Isaias Lopez [address] [address] Alana@[facility] 02/07/2025 9:00 AM EST Office Visit [facility], [facility] at [address] [address] Tera Hope, CARLY [address] [place] [address] [place] [address] Emilee@[facility] 02/07/2025 10:00 AM EST Appointment [facility], Nuclear Medicine [address] [place] [address] Chava Mauro NP [address] [place] [address] Annie@[facility] Isaias Lopez [address] [address] Alana@[facility] 03/07/2025 9:30 AM EST Blood Draw Laboratory Services, [facility] [address] [address] Isaias Lopez [address] [address] Alana@[facility] 03/07/2025 10:30 AM EST Office Visit [facility], [facility] [address] [address] Isaias Lopez [address] [address] Alana@[facility] 03/07/2025 11:30 AM EST Appointment [facility], Nuclear Medicine [address] [address] Chava Mauro, KYLE [address] [place] [address] Annie@[facility] Isaias Lopez [address] [address] Alana@[facility] documented as of this encounter Visit Diagnoses Not on filedocumented in this encounter Care Teams Materials Assistant Relationship Specialty Start Date End Date Donald Bragg PA [address] [place] [address] PCP - General Physician Electron Microprobe Operator 03/23/22 Self-Referred, Patient Referring Physician 03/23/22 Celio Michaels MD [address] [place] [address] 04/15/22 Wesly Tejada MD [address] [place] [address] Urology 11/23/23 documented as of this encounter Additional Source Comments The information contained in this document represents components of the legal health record. It is not the complete legal health record.[facility]
--- OUTSIDE RECORDS SUMMARY | 2024-12-20 10:34 | XMS_ITS | Encounter Summary ---
Author Organization [facility] Address [address] [address] Phone Care Team Providers Care Printing Roller Polisher Name Role Phone Self-Referred, Patient Unavailable Unavailab Donald Dye Primary Care Provider [phone] Celio Michaels MD Unavailable [phone] Wesly Tejada MD Unavailable Reason for Referral * MRI/CAT Scan - Closed Specialty Diagnoses / Procedures Referred By Akila lyon Referred To Contact Radiology Diagnoses Prostate cancer Procedures PET/CT Body Other/Research Krystyna Kapoor MD Phone: tel: fax: mailto:[email or web address] Referral ID Status Reason Start Date Expiration Date Visits Re quested Visits Authorized [id number] Closed 05/17/2023 1 1 Encounter Details Date Type Department Care Team (Late st Contact Info) Description 05/17/2023 Ancillary Orders V[facility]UAL DEPARTMENT [address] [place] [address] Krystyna Kaopor MD [address] [place], [place] [id number] [email or web address] Prostate cancer (Primary Dx) Social History Tobacco Use Types Packs/Day Years [...] Info) Description 01/08/2025 5:15 PM EST Appointment [facility], PET/CT [address] [address] Alcira Becerra PA-C [address] [place] [address] [email or web address] Isaias Lopez [address] [address] Alana@[email or web address] 01/10/2025 9:00 AM EST Blood Draw Laboratory Services, [facility] at [address] [address] Isaias Lopez, [address] [address] Alana@[facility] 01/10/2025 10:00 AM EST Office Visit [facility], [facility] at [address] [address] Tera Hope, SOLUTIONS SALES EXECUTIVE [address] [place] [address] Cutaneous [place] [address] Emilee@[facility] 01/10/2025 11:00 AM EST Appointment [facility], Nuclear Medicine [address] [place] [address] Chava Mauro NP [address] [place] [address] Annie@[facility] Isaias Lopez, [address] [address] Alana@[facility] 02/07/2025 8:00 AM EST Blood Draw Laboratory Services, [facility] at [address] [address] Isaias Lopez, [address] [address] Alana@[facility] 02/07/2025 9:00 AM EST Office Visit [facility], [facility] at [address] [address] Tera Hope CNP [address] [place] [address] for Cutaneous [place] [address] Emilee@[facility] 02/07/2025 10:00 AM EST Appointment [facility], Nuclear Medicine [address] [place] [address] Chava Mauro NP [address] [place] [address] Annie@[facility] Isaias Lopez [address] [address] Alana@[facility] 03/07/2025 9:30 AM EST Blood Draw Laboratory Services, [facility] at [address] [address] Isaias Lopez [address] [address] Alana@[facility] 03/07/2025 10:30 AM EST Office Visit [facility], [facility] at [address] [address] Isaias Lopez [address] [address] Alana@[facility] 03/07/2025 11:30 AM EST Appointment [facility], Nuclear Medicine [address] [place] [address] Chava Mauro, KYLE [address] [place] [address] Annie@[facility] Isaias Lopez [address] [address] Alana@[facility] documented as of this encounter Results * PET/CT Body Other/Research (05/26/2023 2:21 PM EDT) Anatomical Region Laterality Modality Positron Emissio n Tomography (PET) Other 05/26/2023 4:37 PM EDT Impressions 05/29/2023 2:08 PM EDT 1. Redemonstration of radiotracer avid aortocaval lymph node and multiple osseous metastases, not significantly changed in appearance since the most recent study of 04/18/2023. ATTESTATION: Kelsey Piedra, as teaching physician have reviewed the images, if any, for this patient's exam, and if necessary, have edited the report originally created by Emerson Rebollar. Narrative 05/29/2023 2:08 PM EDT Reason for exam (per EHR order): Research Study Additional clinical information obtained from the EHR: 57-year-old man with history of prostate cancer diagnosed in 2015. Shahana score of 9 and treated with radiation therapy and 18 months of ADT. Recurrence with metastatic disease to the bone 2021 with elevated PSA. Treated with ADT, abiraterone, and chemotherapy with reduction in tumor volume. In late 2022 PSA faizan with increase in bone disease and new retroperitoneal nodes. Subsequent treatment strategy. TECHNIQUE: Radiopharmaceutical: F-18-PSMA. Dose: 9.56 mCi. Image acquisition: : At 65 minutes minutes following IV tracer administration via a left AC vein, positron emission tomography was performed from the vertex through the mid thigh. Non-contrast low-dose helical CT imaging was performed over the same range without breath-hold for attenuation correction of PET images and anatomic correlation. COMPARISON: [id number] PET/CT of 04/18/2023. FINDINGS: HEAD AND NECK: No abnormal radiotracer uptake. CHEST: Ports and devices: None Lungs: No abnormal radiotracer uptake. Similar 5 mm nodule in the right middle lobe without radiotracer uptake (image 145). Pleura: No abnormal radiotracer uptake. Lymph nodes: No abnormal radiotracer uptake. Mediastinum: No abnormal radiotracer uptake. Breasts/Chest wall: No abnormal radiotracer uptake. Bilateral mild symmetric gynecomastia. ABDOMEN/PELVIS: Liver/Biliary system: No abnormal radiotracer uptake. Pancreas: No abnormal radiotracer uptake. Spleen: No abnormal radiotracer uptake. Adrenal Glands: No abnormal radiotracer uptake. Kidneys: No abnormal radiotracer uptake. Bowel: No abnormal radiotracer uptake. Mesentery, Omentum and Peritoneum: No abnormal radiotracer uptake. Pelvic Organs: No abnormal radiotracer uptake. Redemonstrated fiducial marker within the prostate gland. Lymph Nodes: Redemonstration of avid 0.6 cm aortocaval node (image 231). Musculoskeletal: Redemonstration of innumerable sclerotic lesions throughout the axial and proximal appendicular skeleton with multiple foci of radiotracer avid lesions involving the calvarium (eg. image 37), spine, bilateral scapulae, bilateral ribs, manubrium, bilateral iliac bones, bilateral acetabula, sacrum and left proximal femur. Multilevel degenerative changes in the spine. Procedure Note Kelsey Ayoub MD - 05/29/2023 Reason for exam (per EHR order): Research Study Additional clinical information obtained from the EHR: 57-year-old manwith history of prostate cancer diagnosed in 2015. Shahana score of 9 andtreated with radiation therapy and 18 months of ADT. Recurrence withmetastatic disease to the bone 2021 with elevated PSA. Treated with ADT,abiraterone, and chemotherapy with reduction in tumor volume. In late 3PSA faizan with increase in bone disease and new retroperitoneal nodes.Subsequent treatment strategy. TECHNIQUE: Radiopharmaceutical: F-18-PSMA. Dose: 9.56 mCi. Image acquisition: : At 65 minutes minutes following IV traceradministration via a left AC vein, positron emission tomography wasperformed from the vertex through the mid thigh. Non-contrast low-dosehelical CT imaging was performed over the same range without breath-holdfor attenuation correction of PET images and anatomic correlation. COMPARISON: [id number] PET/CT of 04/18/2023. FINDINGS: HEAD AND NECK: No abnormal radiotracer uptake. CHEST: Ports and devices: None Lungs: No abnormal radiotracer uptake. Similar 5 mm nodule in the rightmiddle lobe without radiotracer uptake (image 145). Pleura: No abnormal radiotracer uptake. Lymph nodes: No abnormal radiotracer uptake. Mediastinum: No abnormal radiotracer uptake. Breasts/Chest wall: No abnormal radiotracer uptake. Bilateral mildsymmetric gynecomastia. ABDOMEN/PELVIS: Liver/Biliary system: No abnormal radiotracer uptake. Pancreas: No abnormal radiotracer uptake. Spleen: No abnormal radiotracer uptake. Adrenal Glands: No abnormal radiotracer uptake. Kidneys: No abnormal radiotracer uptake. Bowel: No abnormal radiotracer uptake. Mesentery, Omentum and Peritoneum: No abnormal radiotracer uptake. Pelvic Organs: No abnormal radiotracer uptake. Redemonstrated fiducialmarker within the prostate gland. Lymph Nodes: Redemonstration of avid 0.6 cm aortocaval node (image 231). Musculoskeletal: Redemonstration of innumerable sclerotic lesionsthroughout the axial and proximal appendicular skeleton with multiple fociof radiotracer avid lesions involving the calvarium (eg. image 37), spine,bilateral scapulae, bilateral ribs, manubrium, bilateral iliac bones,bilateral acetabula, sacrum and left proximal femur. Multileveldegenerative changes in the spine. IMPRESSION: 1. Redemonstration of radiotracer avid aortocaval lymph node and multipleosseous metastases, not significantly changed in appearance since the mostrecent study of 04/18/2023. ATTESTATION: Kelsey Piedra, as teaching physician have reviewed theimages, if any, for this patient's exam, and if necessary, have edited thereport originally created by Emerson Rebollar. Krystyna Kapoor MD IMG NM PET Final Result documented in this encounter Visit Diagnoses Diagnosis Prostate cancer- Primary Malignant neoplasm of prostate Prostate cancer Malignant neoplasm of prostate documented in this encounter Additional Health Concerns Infection Onset Date Last Indicated Resolved Time COVID-19 Comment:Sx onset 06/23/23 Test 06/24/23 06/23/2023 06/24/2023 07/13/2023 1:21 AM E DT COVID-19 Comment:Sx onset =12/2112/22/2023 12/24/2023 01/11/2024 1:21 A M EST documented as of this encounter Care Teams Printing Roller Polisher Relationship Specialty Start Date End Date Donald Bragg PA [address] [place] [address] PCP - General Physician Corporate Human Resources Manager 03/23/22 Self-Referred, Patient Referring Physician 03/23/22 Celio Michaels MD [address] [place] [address] 04/15/22 Wesly Tejada MD [address] [place] [address] Urology 11/23/23 documented as of this encounter Additional Source Comments The information contained in this document represents components of the legal health record. It is not the complete legal health record.[facility]
--- OUTSIDE RECORDS SUMMARY | 2024-12-20 10:34 | XMS_ITS | Clinical Summary ---
Author Organization [facility] Address [address] [address] Phone Care Team Providers Care Tack Cutter Name Role Phone Self-Referred, Patient Unavailable Unavailab Donald Dye Primary Care Provider Celio Michaels MD Unavailable Wesly Tejada MD Unavailable Allergies No known active allergies Medications cholecalcifer ol (VITAMIN D3) 2,000 unit tablet Take 2,000 Units by mouth daily. 04/10/19 23 Active levothyroxine (SYNTHROID, LEVOTHROID) 175 MCG tablet Take 175 mcg by mouth daily. 04/10/19 23 Active pantoprazole (PROTONIX) 40 MG tablet Take 40 mg by mouth daily. 12/10/19 22 Active tadalafiL (CIALIS) 10 MG tablet TAKE ONE TABLET BY MOUTH DAILY NEEDED FOR SEXUAL ACTIVITY; ADMINISTER APROXIMATELY 30 MINUTES BEFORE SEXUAL ACTIVITY; DO NOT USE MORE DWAIN 01/26/20 22 Active Medication-Fr ee Text Zoone Eye Health Supplement (Lutein 180 mg+multivitamin s/minerals): Take 1 tablet by mouth daily Active venlafaxine (EFFEXOR-XR) 37.5 MG 24 hr capsule Take 1 capsule (37.5 mg total) by mouth daily. 30 capsule 3 12/18/19 25 Active enzalutamide (XTANDI) 40 mg capsule Take 4 capsules (160 mg total) by mouth daily. 120 capsule 5 12/19/19 25 Active enzalutamide (XTANDI) 40 mg capsule Take 4 capsules (160 mg total) by mouth daily. 120 capsule 5 09/07/19 25 025 Discontinued(R eorder) venlafaxine (EFFEXOR-ER,) 37.5 mg TR24 Take 1 tablet (37.5 mg total) by mouth daily. 30 tablet 3 12/14/19 25 025 Discontinued Active Problems Problem Noted Date Diagnosed Date Prostate cancer 11/17/2023 Encounters Date Type Department Care Team Description 12/18/2024 Orders Only [facility], [facility] [address] [facility] [place] [address] Tera Hope CNP 12/17/2024 Orders Only [facility], [facility] [address] [facility] [place] [address] Alcira Becerra PA-C 12/13/2024 10:31 AM EDT - 12/13/2024 11:59 PM EDT Hospital Encounter [facility], Nuclear Medicine [address] [place] [phone] Chava Mauro, Isaias Acevedo MBBCh Arrived Discharge Disposition: Home or Self Care 12/13/2024 10:00 AM EDT Office Visit [facility], [facility] at [address] [address] Alcira Becerra PA-C Malignant neoplasm of prostate 11/15/2024 9:32 AM EDT - 11/15/2024 11:59 PM EDT Hospital Encounter [facility], Nuclear Medicine [address] [place] [address] Chava Mauro NP Ravi, Praful K, MBBCh Discharge Disposition: Home or Self Care 11/15/2024 9:00 AM EDT Office Visit [facility], [facility] at [address] [address] Alcira Becerra PA-C Prostate cancer (Primary Dx) 11/01/2024 Telephone [facility], [address], [address] [place] [address] Eryn Mendiola, SUHAIL Care Coordination; Symptom Management 10/28/2024 [facility], [address], [address] [place] [address] Eryn Mendiola RN Care Coordination; Symptom Management 10/25/2024 Telephone [facility], [address], [address] [place] [address] Eryn Mendiola RN Care Coordination; Symptom Management 10/18/2024 10:00 AM EDT Office Visit Imaging Clinic, [facility] at [address] [address] Marla Valverde MD 10/18/2024 8:45 AM EDT - 10/18/2024 11:59 PM EDT Hospital Encounter [facility], Nuclear Medicine [address] [place] [address] Chava Mauro NP Jacene, Heather A, MD Discharge Disposition: Home or Self Care 10/18/2024 8:00 AM EDT Office Visit [facility], [facility] at [address] [address] Alcira Becerra PA-C Prostate cancer (Primary Dx) 10/17/2024 12:00 PM EDT [facility]medicine - audio only [facility] Imaging [facility], [facility], Imaging Clinic [address] [place] [address] Chava Mauro NP Jacene, Heather A, MD Prostate cancer (Primary Dx) 10/10/2024 Orders Only [facility], [facility] [address] [facility] [address] [place] [address] [facility]as Lopez [facility] [place] Prostate cancer (Primary Dx) from Last 3 Months Family History Medical History Relation Comments Cancer Paternal Uncle Breast cancer Sister Relation Status Comments Paternal Uncle Sister Social History Tobacco Use Types Packs/Day Years Used Date Smoking Tobacco: Never Smokeless Tobacco: Never Tobacco Cessation:Counseling Given: Not Answered Education Answer Date Recorded Are you interested [...] Orientation Straight 03/23/2022 10 :32 AM EST Last Filed Vital Signs Vital Sign Reading Time Taken Comments Blood Pressure 129/66 12/13/2024 9:47 AM EDT Pulse 65 12/13/2024 9:47 AM EDT Temperature 35.8 C (96.4 F) 12/13/2024 9:46 AM EDT Respiratory Rate 15 12/13/2024 9:46 AM EDT Oxygen Saturation 100% 12/13/2024 9:47 AM EDT Inhaled Oxygen Concentration - - Weight 85.9 kg (189 lb 6 oz) 12/13/2024 9:46 AM EDT Height 174.9 cm (5' 8.86 ) 09/06/2024 2:13 PM ED T Body Mass Index 28.08 09/06/2024 2:13 PM EDT Plan of Treatment Upcoming Encounters Date Type Department Care Team (Late st Contact Info) Description 01/08/2025 5:15 PM EST Appointment [facility], PET/CT [address] [address] Alcira Becerra PA-C [address] [place] [phone] [email or web address] Isaias Lopez, [address] [address] [email or web address] 01/10/2025 9:00 AM EST Blood Draw Laboratory Services, [facility] at [address] [address] Isaias Lopez [address] [address] [email or web address] 01/10/2025 10:00 AM EST Office Visit [facility], [address] [address] Tera Hope, CARLY [address] [place] [address] for [place] [address] [email or web address] 01/10/2025 11:00 AM EST Appointment [facility], Nuclear Medicine [address] [place] [address] Chava Mauro, KYLE [address] [place] [phone] [email or web address] Isaias Lopez [address] [address] [email or web address] 02/07/2025 8:00 AM EST Blood Draw Laboratory Services, [facility] at [address] [address] Isaias Lopez, [address] [address] Alana@[email or web address] 02/07/2025 9:00 AM EST Office Visit [facility], [facility] at [address] [address] Tera Hope, [address] for [place] [address] [email or web address] 02/07/2025 10:00 AM EST Appointment [facility], Nuclear Medicine [address] [place] [address] Chava Mauro, TRAVEL SERVICES PROFESSIONAL [address] [place] [phone] [email or web address] Isaias Lopez, [address] [address] [email or web address] 03/07/2025 9:30 AM EST Blood Draw Laboratory Services, [facility] at [address] [address] Isaias Lopez [address] [address] Alana[email or web address] 03/07/2025 10:30 AM EST Office Visit [facility], [facility] at [place] [address] [facility] [address] [place] [address] Isaias Lopez, [address] [phone] Alana[email or web address] 03/07/2025 11:30 AM EST Appointment [facility] [place], Nuclear Medicine [address] [address] Chava Mauro, KYLE [address] [place] [phone] [email or web address] Isaias Lopez [address] [address] [email or web address] Health Maintenance Due Date Last Done Comments LIPID PANEL 1963 TSH LEVEL 1963 DEPRESSION SCREENING 1975 HEPATITIS C SCREENING 09/07/1981 HIV ONE-TIME SCREENING (18-6 5 YEARS) 09/07/1981 PNEUMOCOCCAL VACCINES (50+ years) (1 of 2 - PCV) 09/07/1982 ZOSTER VACCINES (1 of 2) 09/07/1982 SMOKING STATUS SCREENING (On ce After 26 Yrs) 09/07/1989 COLOGUARD 09/07/2008 COLONOSCOPY 09/07/2008 COLORECTAL CANCER SCREENING 09/07/2008 FIT TEST 09/07/2008 FOBT 09/07/2008 SIGMOIDOSCOPY 09/07/2008 VIRTUAL COLONOSCOPY 09/07/2008 INFLUENZA VACCINE (#1) 2024 COVID-19 VACCINE (2024-2 6 season) 2024 02/09/2021, 05/08/2020, 04/10/2020 SCREENING FOR DIABETES 12/14/2027 12/13/2024 Adult Td,Tdap Booster 12/31/2030 12/31/2020 RSV VACCINE (1 - 1-dose 75+ series) 09/07/2038 HEPATITIS A VACCINES Aged Out No long er eligible based on patient's age to complete this topic HIB VACCINES Aged Out No longer eligi ble based on patient's age to complete this topic MENINGOCOCCAL VACCINES (ACWY) Aged Out No longer eligible based on patient's age to complete this topic MENINGOCOCCAL VACCINES (B) Aged Out N o longer eligible based on patient's age to complete this topic Medical Devices Not on file Procedures Procedure Name Priority Date/Time Associated Diagnosis Comments NM RADIUM 223 (XOFIGO) THERAPY Routine 12/13/2024 12:24 PM EDT Prostate cancer TESTOSTERONE, TOTAL Routine 12/13/2024 9 :38 AM EDT Prostate cancer PSA DIAGNOSTIC (MONITORING) Routine 12/13/2024 9:38 AM EDT Prostate cancer COMPREHENSIVE METABOLIC PANEL Routine 12/13/2024 9:38 AM EDT Prostate cancer HC BLOOD COUNT COMPLETE AUTO&AUTO DIFRNTL WBC Routine 12/13/2024 9:38 AM EDT Prostate cancer NM RADIUM 223 (XOFIGO) THERAPY Routine 11/15/2024 10:30 AM EDT Prostate cancer TESTOSTERONE, TOTAL Routine 11/15/2024 8 :34 AM EDT Prostate cancer PSA DIAGNOSTIC (MONITORING) Routine 11/15/2024 8:34 AM EDT Prostate cancer COMPREHENSIVE METABOLIC PANEL Routine 11/15/2024 8:34 AM EDT Prostate cancer HC BLOOD COUNT COMPLETE AUTO&AUTO DIFRNTL WBC Routine 11/15/2024 8:34 AM EDT Prostate cancer NM RADIUM 223 (XOFIGO) THERAPY Routine 10/18/2024 11:52 AM EDT Prostate cancer RGENP ROOM TEMP Routine 10/18/2024 8:12 AM EDT Prostate cancer PSA DIAGNOSTIC (MONITORING) Routine 10/18/2024 8:12 AM EDT Prostate cancer TESTOSTERONE, TOTAL Routine 10/18/2024 8 :12 AM EDT Prostate cancer COMPREHENSIVE METABOLIC PANEL Routine 10/18/2024 8:12 AM EDT Prostate cancer HC BLOOD COUNT COMPLETE AUTO&AUTO DIFRNTL WBC Routine 10/18/2024 8:12 AM EDT Prostate cancer from Last 3 Months Results * NM [place] 223 (Xofigo) Therapy (12/13/2024 12:24 PM EDT) Anatomical Region Laterality Modality Nuclear Medicine Other 12/13/2024 12:1 0 PM EDT Impressions 12/13/2024 12:59 PM EDT [place]-223 (Xofigo) therapy for castration-resistant prostate cancer, delivered without immediate adverse events. 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 He presents for administration #3 of radium-223 today. TECHNIQUE: Radiopharmaceutical: [place]-223 (Xofigo). Dose: 130.92 microCi. Procedure: Lab values obtained December 13, 2024 were reviewed. Platelet count was 262 K/microL, hemoglobin was 12.4 g/dL, and absolute neutrophil count was 2.34 K/microL. These values were all within the acceptable range for treatment. An IV catheter was placed at the injection site in the left hand, and free flow of saline test infusion and free blood return were verified. Immediately prior to the injection of the radiopharmaceutical, a time-out was performed by Rafa Chu at 1204. The radiopharmaceutical was injected slowly over a 1-minute period at 1208. The injection was followed by flushing with saline solution. COMPARISON: None. FINDINGS: The patient tolerated the procedure well without any apparent immediate complications. Procedure Note Rafa Doe MD - 12/13/2024 Reason for exam (per EHR order): * Prostate cancer, active surveillance Additional clinical information obtained from the EHR: 59 [id number] with metastatic castration resistant prostate cancer. He presents foradministration #3 of radium-223 today. TECHNIQUE: Radiopharmaceutical: [place]-223 (Xofigo). Dose: 130.92 microCi. Procedure: Lab values obtained December 13, 2024 were reviewed. Plateletcount was 262 K/microL, hemoglobin was 12.4 g/dL, and absolute neutrophilcount was 2.34 K/microL. These values were all within the acceptable rangefor treatment. An IV catheter was placed at the injection site in the left hand, and freeflow of saline test infusion and free blood return were verified.Immediately prior to the injection of the radiopharmaceutical, a time-outwas performed by Rafa Doe] at 1204. The radiopharmaceutical was injected slowly over a 1-minute period [id number]. The injection was followed by flushing with saline solution. COMPARISON: None. FINDINGS: The patient tolerated the procedure well without any apparentimmediate complications. IMPRESSION: [place]-223 (Xofigo) therapy for castration-resistant prostate cancer,delivered without immediate adverse events. Chava Mauro NP IMG NM RN THERAPY Riri l Result * (ABNORMAL) Comprehensive metabolic panel (12/13/2024 9:38 AM EDT) Only the most recent of3 resultswithin the time period is included. SODIUM 139 136 - 145 mmol/L [facility] POTASSIUM 4.2 3.4 - 5.1 mmol/L [facility] CHLORIDE 105 98 - 107 mmol/L [facility] CO2 20(L) 22 - 31 mmol/L [facility] BUN 9 6 - 23 mg/dL [facility] CREATININE 0.92 0.50 - 1.20 mg/dL [facility] GLUCOSE 117(H) 70 - 100 mg/dL [facility] ALBUMIN 4.1 3.5 - 5.2 g/dL [facility] TOTAL PROTEIN 7.2 6.4 - 8.3 g/dL [facility] CALCIUM 9.3 8.8 - 10.7 mg/dL [facility] ALKALINE PHOSPHATASE 75 40 - 129 U/L [facility] TOTAL BILIRUBIN 0.3 0.2 - 1.2 mg/dL [facility] AST 21 <41 U/L [facility] ALT 14 <42 U/L [facility] GLOBULIN 3.1 2.3 - 4.2 g/dL [facility] EGFR 95 >59 mL/min/1.7 3m2 [facility] Comment:Estimated glomerular filtration rate calculated using the CKD-EPI refit equation. ANION GAP 15 7 - 17 mmol/L [facility] Blood 12/13/2024 9:38 AM EDT 12/13/2024 9:43 AM EDT Alcira Becerra PA-C LAB BLOOD ORDERABLES Final Result Performing Organization Address City/[facility] Co de Phone Number [address] * PSA diagnostic (monitoring) (12/13/2024 9:38 AM EDT) Only the most recent of3 resultswithin the time period is included. PSA Monitoring 1.03 0.00 - 4.00 ng/mL [facility] Blood 12/13/2024 9:38 AM EDT 12/13/2024 9:43 AM EDT Alcira Becerra PA-C LAB BLOOD ORDERABLES Final Result Performing Organization Address City/[facility]/ZIP Co de Phone Number [address] * (ABNORMAL) CBC and differential (12/13/2024 9:38 AM EDT) Only the most recent of3 resultswithin the time period is included. [facility] Signature WBC 4.26 4.00 - 10.00 K/uL [facility] RBC 4.02(L) 4.50 - 6.40 M/uL [facility] HGB 12.4(L) 13.5 - 18.0 g/dL [facility] HCT 35.8(L) 40.0 - 54.0 % [facility] PLT 262 150 - 450 K/uL [facility] MCV 89.1 80.0 - 100.0 fL [facility] MCH 30.8 27.0 - 32.0 pg [facility] MCHC 34.6 32.0 - 36.0 g/dL [facility] RDW 12.7 11.5 - 14.5 % [facility] MPV 8.7 8.4 - 12.0 fL [facility] NRBC 0.00 0.00 /100 WBCs [facility] ABSOLUTE NRBC 0.00 0 K/uL [facility] DIFF METHOD Auto [facility] NEUTS 55.0 48.0 - 76.0 % [facility] LYMPHS 32.4 18.0 - 41.0 % [facility] MONOS 9.4 4.0 - 11.0 % [facility] EOS 2.1 0.0 - 5.0 % [facility] BASOS 0.9 0.00 - 1.50 % [facility] % IMMATURE GRANS 0.2 0.00 - 1.00 % [facility] ABSOLUTE NEUTS 2.34 1.92 - 7.60 K/uL [facility] ABSOLUTE LYMPHS 1.38 0.72 - 4.10 K/uL [facility] ABSOLUTE MONOS 0.40 0.16 - 1.10 K/uL [facility] ABSOLUTE EOS 0.09 0.00 - 0.50 K/uL [facility] ABSOLUTE BASOS 0.04 0.00 - 0.15 K/uL [facility] ABS IMMATURE GRANS 0.01 0.00 - 0.10 K/uL [facility] Blood 12/13/2024 9:38 AM EDT 12/13/2024 9:43 AM EDT Alcira Mullinso PA-C LAB BLOOD ORDERABLES Final Result Performing Organization Address City/[facility]/ZIP Co de Phone Number [address] * (ABNORMAL) Testosterone, total (12/13/2024 9:38 AM EDT) Only the most recent of3 resultswithin the time period is included. TESTOSTERONE <3(L) 193 - 740 ng/dL [facility] Blood 12/13/2024 9:38 AM EDT 12/13/2024 9:43 AM EDT Alcira Mullinso PA-C LAB BLOOD ORDERABLES Final Result Performing Organization Address City/[facility] Co de Phone Number [address] * NM [place] 223 (Xofigo) Therapy (11/15/2024 10:30 AM EDT) Anatomical Region Laterality Modality Nuclear Medicine Other 11/19/2024 9:13 AM EDT Impressions 11/19/2024 9:24 AM EDT [place]-223 (Xofigo) therapy for castration-resistant prostate cancer, delivered without immediate adverse events. 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 He presents for administration #2 of radium-223 today. TECHNIQUE: Radiopharmaceutical: [place]-223 (Xofigo). Dose: 130.6 microCi. Procedure: Lab values obtained 11/15/2024 were reviewed. Platelet count was 228 K/microL, hemoglobin was 13.1 g/dL, and absolute neutrophil count was 2.45 K/microL. These values were all within the acceptable range for treatment. An IV catheter was placed at the injection site in the 130.6, and free flow of saline test infusion and free blood return were verified. Immediately prior to the injection of the radiopharmaceutical, a time-out was performed by certified nuclear medicine technologists x 2] at . The radiopharmaceutical was injected slowly over a 1-minute period at left hand iv. The injection was followed by flushing with saline solution. COMPARISON: None. FINDINGS: The patient tolerated the procedure well without any apparent immediate complications. Procedure Note Hugo Fitzgerald MD - 11/19/2024 Reason for exam (per EHR order): * Prostate cancer, active surveillance Additional clinical information obtained from the EHR: 59 [id number] with metastatic castration resistant prostate cancer with progressionshowing more bone disease. He presents for administration #2 ofradium-223 today. TECHNIQUE: Radiopharmaceutical: [place]-223 (Xofigo). Dose: 130.6 microCi. Procedure: Lab values obtained 11/15/2024 were reviewed. Platelet count kna730 K/microL, hemoglobin was 13.1 g/dL, and absolute neutrophil count was2.45 K/microL. These values were all within the acceptable range fortreatment. An IV catheter was placed at the injection site in the 130.6, and freeflow of saline test infusion and free blood return were verified.Immediately prior to the injection of the radiopharmaceutical, a time-outwas performed by certified nuclear medicine technologists x 2] at. The radiopharmaceutical was injected slowly over a 1-minute period at lefthand iv. The injection was followed by flushing with saline solution. COMPARISON: None. FINDINGS: The patient tolerated the procedure well without any apparentimmediate complications. IMPRESSION: [place]-223 (Xofigo) therapy for castration-resistant prostate cancer,delivered without immediate adverse events. us Chava Knapp Zunilda TRAVEL SERVICES PROFESSIONAL IMG NM RN THERAPY Riri lopez Result * NM [place] 223 (Xofigo) Therapy (10/18/2024 11:52 AM EDT) Anatomical Region Laterality Modality Nuclear Medicine Other 10/18/2024 11:0 2 AM EDT Impressions 10/18/2024 12:23 PM EDT [place]-223 (Xofigo) therapy for castration-resistant prostate cancer, delivered without immediate adverse events. 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 He presents for administration #1 of radium-223 today. TECHNIQUE: Radiopharmaceutical: [place]-223 (Xofigo). Dose: 128.2 microCi. Procedure: Lab values obtained 10/18/24 were reviewed. Platelet count was 243 K/microL, hemoglobin was 12.9 g/dL, and absolute neutrophil count was 2.4 K/microL. These values were all within the acceptable range for treatment. An IV catheter was placed at the injection site in the left hand, and free flow of saline test infusion and free blood return were verified. Immediately prior to the injection of the radiopharmaceutical, a time-out was performed by Dr. Marla Valverde] at 10:54. The radiopharmaceutical was injected slowly over a 1-minute period at 11:01. The injection was followed by flushing with saline solution. COMPARISON: None. FINDINGS: The patient tolerated the procedure well without any apparent immediate complications. Procedure Note Marla Valverde MD - 10/18/2024 Reason for exam (per EHR order): * Prostate cancer, active surveillance Additional clinical information obtained from the EHR: 59-year-old malewith metastatic castration resistant prostate cancer. He presents foradministration #1 of radium-223 today. TECHNIQUE: Radiopharmaceutical: [place]-223 (Xofigo). Dose: 128.2 microCi. Procedure: Lab values obtained 10/18/24 were reviewed. Platelet count pix934 K/microL, hemoglobin was 12.9 g/dL, and absolute neutrophil count was2.4 K/microL. These values were all within the acceptable range fortreatment. An IV catheter was placed at the injection site in the left hand, and freeflow of saline test infusion and free blood return were verified.Immediately prior to the injection of the radiopharmaceutical, a time-outwas performed by Dr. Marla Valverde] at 10:54. The radiopharmaceutical was injected slowly over a 1-minute period at11:01. The injection was followed by flushing with saline solution. COMPARISON: None. FINDINGS: The patient tolerated the procedure well without any apparentimmediate complications. IMPRESSION: [place]-223 (Xofigo) therapy for castration-resistant prostate cancer,delivered without immediate adverse events. Chava Mauro NP IMDolores NM RN THERAPY Riri john Result * RGENP ROOM TEMP (10/18/2024 8:12 AM EDT) [facility] Research Test FOR RESEARCH STUDY [facility] LIC# [id number] Blood 10/18/2024 8:12 AM EDT 10/18/2024 8:14 AM EDT Isaias Lopez [facility] LAB BLOOD ORDERABLES Final R esult [facility] LIC# [id number] [address] [place] [address], [facility] from Last [address] [place] [address] [place] [address] [place] [address] CHOICE CHOICE [facility] CHOICE CHOICE CHOICE Care Teams Tack Cutter Relationship Specialty Start Date End Date Donald Bragg PA [facility] [place] [address] PCP - General Physician Electronic Assembler Group Leader 03/23/22 Self-Referred, Patient Referring Physician 03/23/22 Celio Michaels MD [address] [place] [id number] 04/15/22 Wesly Tejada MD [address] [place] [phone] Urology 11/23/23 Additional Source Comments The information contained in this document represents components of the legal health record. It is not the complete legal health record.[facility]
--- OUTSIDE RECORDS SUMMARY | 2024-12-20 10:34 | XMS_ITS | Encounter Summary ---
Author Organization [facility] Address [address] [place] [address] Phone Care Team Providers Care Director Supply Chain Name Role Phone Self-Referred, Patient Unavailable Unavailab Donald Dye Primary Care Provider Celio Michaels MD Unavailable [phone] Wesly Tejada MD Unavailable Encounter Details Date Type Department Care Team (Late st Contact Info) Description 12/18/2024 Orders Only [facility], [facility] [place] [address] [facility], 11th [place] [address] Tera Hope, CARLY [address] [facility] [place] [address] [email or web address] Social History Tobacco Use Types Packs/Day Years [...] Info) Description 01/08/2025 5:15 PM EST Appointment [facility], PET/CT [address] [address] Alcira Becerra PA-C [address] [place] [address] [email or web address] Isaias Lopez, [address] [address] Alana@[facility] 01/10/2025 9:00 AM EST Blood Draw Laboratory Services, [facility] at [address] [address] Isaias Lopez, [address] [address] Alana@[facility] 01/10/2025 10:00 AM EST Office Visit [facility], [facility] at [address] [address] Tera Hope, CARLY [address] [place] [address] [place] [address] Emilee@[email or web address] .[facility] 01/10/2025 11:00 AM EST Appointment [facility], Nuclear Medicine [address] [place] [address] Chava Mauro, TRIM MOUNTER [address] [place] [address] Annie@[facility] Isaias Lopez [address] [address] Alana@[facility] 02/07/2025 8:00 AM EST [facility], [address] [address] Isaias Lopez [address] [address] Alana@[facility] 02/07/2025 9:00 AM EST Office Visit [facility], [address] [address] Tera Hope, RN [facility] [address] [place] [address] [place] [address] Emilee@[facility] 02/07/2025 10:00 AM EST Appointment [facility], Nuclear Medicine [address] [place] [address] Chava Mauro, KYLE [address] [place] [address] Annie@[facility] Isaias Lopez [address] [address] Alana@[facility] 03/07/2025 9:30 AM EST Blood Draw Laboratory Services, [facility] [address] [address] Isaias Lopez, [address] [address] Alana@[facility] 03/07/2025 10:30 AM EST Office Visit [facility], [facility] [place] [address] [address] Isaias Lopez, [address] [address] Alana@[facility] 03/07/2025 11:30 AM EST Appointment [facility], Nuclear Medicine [address] [place] [address] Chava Mauro, KYLE [address] [place] [address] Annie@[facility] Isaias Lopez [address] [address] Alana@[facility] documented as of this encounter Visit Diagnoses Not on filedocumented in this encounter Care Teams Director Supply Chain Relationship Specialty Start Date End Date Donald Bragg PA [address] [place] [address] PCP - General Physician Textile Conservator 03/23/22 Self-Referred, Patient Referring Physician 03/23/22 Celio Michaels MD [address] [place] [address] 04/15/22 Wesly Tejada MD 575 [place] [address] Urology 11/23/23 documented as of this encounter Additional Source Comments The information contained in this document represents components of the legal health record. It is not the complete legal health record.[facility]
== END 2024-12-20 10:07 | disposition home or self-care (01) ==
LOC: HO.HUSH 09:31
PROVIDERS: PCP Physician Assistant; Visit Provider Urology
DX: C61 Malignant neoplasm of prostate (principal); C79.51 Secondary malignant neoplasm of bone
CPT/HCPCS: 99213

== ENCOUNTER 2025-01-03 11:29 | Outpatient (AMB) | payer OTHER, SELFPAY ==
--- NOTE | 2025-01-03 11:41 | AM.OFFVISNUR ---
Intake Visit Reasons: GnRH Allergies No Known Allergies Allergy (Verified 12/31/24 14:48) Office Meds Eligard (6 month) 45 mg (6 month) subcutaneous syringe Performing Provider: Wesly Tejada MD [facility] Administered by: Bacilio Johnson LPN on 01/03/25 11:41 Dose Route Admin Location Dispensed Lot Number Expiration Date [facility] Green Building Architect 45 mg subcut left arm 45 mg [id number] 01/20/26 67633-363-97 [employer]. Total Dispensed Waste 45 mg 0 % Assessment & Plan Assessment & Plan Orders: Orders AMB Leuprolide Injection - Practice Supplied Today C61 - Malignant neoplasm of prostate Coding
--- OUTSIDE RECORDS SUMMARY | 2025-01-03 17:42 | XMS_ITS | Encounter Summary ---
Author Organization [facility] Address [address] [facility] [address] [place] [address] Phone Care Team Providers Care Coach Cleaner Name Role Phone Self-Referred, Patient Unavailable Unavailab Donald Dye Primary Care Provider Celio Michaels MD Unavailable Wesly Tejada MD Unavailable Encounter Details Date Type Department Care Team (Late st Contact Info) Description 06/05/2024 Procedure Pass Far[facility], [facility] [place] 450 [facility], Floor [address] [place] [id number] Social History Tobacco Use Types Packs/Day Years [...] Info) Description 01/08/2025 5:15 PM EST Appointment [facility], PET/CT [address] [address] Alcira Becerra PA-C [address] [place] [address] [email or web address] Isaias Lopez [address] [address] Alana@[facility] 01/10/2025 9:00 AM EST Blood Draw Laboratory Services, [facility] at [address] [address] Isaias Lopez [address] [address] Alana@[facility] 01/10/2025 10:00 AM EST Office Visit [facility], [facility] at [address] [address] Tera Hope, CARLY [address] [place] [address] [place] [address] Emilee@[facility] 01/10/2025 11:00 AM EST Appointment [facility], Nuclear Medicine [address] [place] [address] Chava Mauro, KYLE [address] [place] [phone] Annie@[facility] Isaias Lopez [address] [address] Alana@[facility] 02/07/2025 8:00 AM EST Blood Draw Laboratory Services, [facility] at [address] [address] Isaias Lopez, [address] [address] Alana@[facility] 02/07/2025 9:00 AM EST Office Visit [facility], [address] [address] Tera Hope, [address] [place] [address] Emilee@[facility] 02/07/2025 10:00 AM EST Appointment [facility], Nuclear Medicine [address] [place] [address] Chava Mauro, [address] [address] Annie@[facility] Isaias Lopez, [address] [address] Alana@[facility] 03/07/2025 9:30 AM EST Blood Draw Laboratory Services, [facility] at [address] [address] Isaias Lopez, [address] [address] Alaan@[facility] 03/07/2025 10:30 AM EST Office Visit [facility], [facility] 300 [facility] 4th [place] [address] Isaias Lopez, [address] [address] Alana@[facility] 03/07/2025 11:30 AM EST Appointment [facility], Nuclear Medicine 300 [facility] 3rd [place] [address] Chava Mauro, KYLE [address] [place] [address] Annie@[facility] Isaias Lopez, [address] [address] Alana@[facility] documented as of this encounter Visit Diagnoses Not on filedocumented in this encounter Care Teams Coach Cleaner Relationship Specialty Start Date End Date Donald Bragg PA [address] [place] [address] PCP - General Physician Zoo Director 03/23/22 Self-Referred, Patient Referring Physician 03/23/22 Celio Michaels MD [address] [place] [address] 04/15/22 Wesly Tejada MD [address] [place] [address] Urology 11/23/23 documented as of this encounter Additional Source Comments The information contained in this document represents components of the legal health record. It is not the complete legal health record.[facility]
--- OUTSIDE RECORDS SUMMARY | 2025-01-03 17:42 | XMS_ITS | Encounter Summary ---
Author Organization [facility] Address [address] [facility] [address] [place] [address] Phone Care Team Providers Care Integrated Circuit Layout Designer Name Role Phone Self-Referred, Patient Unavailable Unavailab Donald Dye Primary Care Provider Celio Michaels MD Unavailable Wesly Tejada MD Unavailable Encounter Details Date Type Department Care Team (Late st Contact Info) Description 06/05/2024 Procedure Pass Farida [facility], [facility] [place] 450 [facility], Floor [address] [place] [phone] Social History Tobacco Use Types Packs/Day Years [...] Info) Description 01/08/2025 5:15 PM EST Appointment [facility], PET/CT [address] [address] Alcira Becerra PA-C [address] [place] [address] [email or web address] Isaias Lopez [address] [address] Alana@[facility] 01/10/2025 9:00 AM EST Blood Draw Laboratory Services, [facility] at [address] [address] [address] [address] Alana@[facility] 01/10/2025 10:00 AM EST Office Visit [facility], [facility] at [address] [address] Tera Hope, CARLY [address] [place] [address] [place] [address] Emilee@[facility] 01/10/2025 11:00 AM EST Appointment [facility], Nuclear Medicine [address] [place] [address] Chava Mauro, KYLE [address] [place] [address] Annie@[facility] Isaias Lpoez [address] [address] Alana@[facility] 02/07/2025 8:00 AM EST Blood Draw Laboratory Services, [facility] at [address] [address] Isaias Lopez, [address] [address] Alana@[facility] 02/07/2025 9:00 AM EST Office Visit [facility], [address] [address] Tera Hope, [address] [place] [address] Emilee@[facility] 02/07/2025 10:00 AM EST Appointment [facility], Nuclear Medicine [address] [place] [address] Chava Mauro, [address] [address] Annie@[facility] Isaias Lopez, [address] [address] Alana@[facility] 03/07/2025 9:30 AM EST Blood Draw Laboratory Services, [facility] at [address] [address] Isaias Lopez, [address] [address] Alana@[facility] 03/07/2025 10:30 AM EST Office Visit [facility], [facility] [address] [facility] 4th [place] [address] Isaias Lopez, [address] [address] Alana@[facility] 03/07/2025 11:30 AM EST Appointment [facility], Nuclear Medicine 300 [facility] 3rd [place] [address] Chava Mauro, KYLE [address] [place] [phone] Annie@[facility] Isaias Lopez, [address] [address] Alana@[facility] documented as of this encounter Visit Diagnoses Not on filedocumented in this encounter Care Teams Integrated Circuit Layout Designer Relationship Specialty Start Date End Date Donald Bragg PA [address] [place] [address] PCP - General Physician Vegetable Loader 03/23/22 Self-Referred, Patient Referring Physician 03/23/22 Celio Michaels MD [address] [place] [address] 04/15/22 Wesly Tejada MD [address] [place] [address] Urology 11/23/23 documented as of this encounter Additional Source Comments The information contained in this document represents components of the legal health record. It is not the complete legal health record.[facility]
--- OUTSIDE RECORDS SUMMARY | 2025-01-03 17:43 | XMS_ITS | Encounter Summary ---
Author Organization [facility] Address [address] [facility] [address] [place] [address] Phone Care Team Providers Care Director Records Management Name Role Phone Self-Referred, Patient Unavailable Unavailab Donald Dye Primary Care Provider [phone] Celio Michaels MD Unavailable Wesly Tejada MD Unavailable Encounter Details Date Type Department Care Team (Late st Contact Info) Description 07/14/2023 Ancillary Orders [facility]ida [facility] Imaging Department, [facility], Imaging Clinic [address] [place] [address] Chava Mauro, KYLE 450 [place] [address] Annie@[email or web address] Social History Tobacco Use Types Packs/Day [...] Info) Description 01/08/2025 5:15 PM EST Appointment [facility], PET/CT [address] [address] Alcira Becerra PA-C [address] [place] [address] [email or web address] Isaias Lopez, [address] [address] Alana@[facility] 01/10/2025 9:00 AM EST Blood Draw Laboratory Services, [facility] at [address] [address] Isaias Lopez, [address] [address] Alana@[facility] 01/10/2025 10:00 AM EST Office Visit [facility], [facility] at [address] [address] Tera Hope, CARLY [address] [place] [address] [place] [address] Emilee@[facility] .[facility] 01/10/2025 11:00 AM EST Appointment [facility], Nuclear Medicine [address] [place] [address] Chava Mauro, KYLE [address] [place] [address] Annie@[facility] Isaias Lopez [address] [address] Alana@[facility] 02/07/2025 8:00 AM EST Blood Draw Laboratory Services, [facility] at [address] [address] Isaias Lopez [address] [address] Alana@[facility] 02/07/2025 9:00 AM EST Office Visit [facility], [address] [address] Tera Hope, CARLY [address] [place] [address] [place] [address] Emilee@[facility] 02/07/2025 10:00 AM EST Appointment [facility], Nuclear Medicine [address] [place] [address] Chava Mauro, SLAT TWISTER [address] [place] [address] Annie@[facility] Isaias Lopez [address] [address] Alana@[facility] 03/07/2025 9:30 AM EST Blood Draw Laboratory Services, [address] 3rd [place] [address] Isaias Lopez, [address] [address] Alana@[facility] 03/07/2025 10:30 AM EST Office Visit [facility], [facility] at [address] [address] Isaias Lopez, [address] [address] Alana@[facility] 03/07/2025 11:30 AM EST Appointment [facility], Nuclear Medicine [address] [place] [address] Chava Mauro, KYLE [address] [place] [address] Annie@[facility] Isaias Lopez, [address] [address] Alana@[facility] documented as of this encounter Visit Diagnoses Not on filedocumented in this encounter Additional Health Concerns Infection Onset Date Last Indicated Resolved Time COVID-19 Comment:Sx onset =12/2112/22/2023 12/24/2023 01/11/2024 1:21 A M EST documented as of this encounter Care Teams Director Records Management Relationship Specialty Start Date End Date Donald Bragg PA [address] [place] [address] PCP - General Physician Histology Supervisor 03/23/22 Self-Referred, Patient Referring Physician 03/23/22 Celio Michaels MD [address] [place] [address] 04/15/22 Wesly Tejada MD [address] [place] [address] Urology 11/23/23 documented as of this encounter Additional Source Comments The information contained in this document represents components of the legal health record. It is not the complete legal health record.[facility]
--- OUTSIDE RECORDS SUMMARY | 2025-01-03 17:43 | XMS_ITS ---
Author Organization [facility] Address [address] [facility] [address] [place] [address] Phone Care Team Providers Care Senior Nurse Manager Name Role Phone Self-Referred, Patient Unavailable Unavailab Donald Dye Primary Care Provider Celio Michaels MD Unavailable Wesly Tejada MD Unavailable Active Problems Problem [...]
--- OUTSIDE RECORDS SUMMARY | 2025-01-03 17:43 | XMS_ITS | Encounter Summary ---
Author Organization [facility] Address [address] [facility] [address] [place] [address] Phone Care Team Providers Care Metal Off Bearer Name Role Phone Self-Referred, Patient Unavailable Unavailab Donald Dye Primary Care Provider Celio Michaels MD Unavailable Wesly Tejada MD Unavailable [phone] Reason for Referral * MRI/CAT Scan - Closed Specialty Diagnoses / Procedures Referred By Akila lyon Referred To Contact Radiology Diagnoses Prostate cancer Procedures PET/CT Body Other/Research Krystyna Kapoor MD Phone: tel: fax: mailto:[email or web address] Referral ID Status Reason Start Date Expiration Date Visits Re quested Visits Authorized [id number] Closed 05/17/2023 1 1 Encounter Details Date Type Department Care Team (Late st Contact Info) Description 05/17/2023 Ancillary Orders VIRTUAL DEPARTMENT [address] [place] [address] Krystyna Kapoor MD [address] [place] [phone] [email or web address] Prostate cancer (Primary Dx) Social History Tobacco [...] Info) Description 01/08/2025 5:15 PM EST Appointment [facility], PET/CT [address] [address] Alcira Becerra PA-C [address] [place] [address] [email or web address] include 234 beds at [facility] Isaias Lopez, [address] [address] Alana@[facility] 01/10/2025 9:00 AM EST Blood Draw Laboratory Services, [facility] at [address] [address] Isaias Lopez, [address] [address] Alana@[facility] 01/10/2025 10:00 AM EST Office Visit [facility], [facility] at [address] [address] Tera Hope, [address] [place] [address] Emilee@[facility] 01/10/2025 11:00 AM EST Appointment [facility], Nuclear Medicine [address] [place] [address] Chava Mauro NP [address] [place] [address] Annie@[facility] Isaias Lopez, [address] [address] Alana@[facility] 02/07/2025 8:00 AM EST Blood Draw Laboratory Services, [facility] at [address] [address] Isaias Lopez, [address] [address] Alana@[facility] 02/07/2025 9:00 AM EST Office Visit [facility], [facility] at [address] [address] Tera Hope CNP [address] [place] [address] [place] [address] Emilee@[facility] 02/07/2025 10:00 AM EST Appointment [facility], Nuclear Medicine [address] [place] [address] Chava Mauro NP [address] [place] [address] Annie@[facility] Isaias Lopez [address] [address] Alana@[facility] 03/07/2025 9:30 AM EST Blood Draw Laboratory Services, [facility] at [address] [address] Isaias Lopez [address] [address] Alana@[facility] 03/07/2025 10:30 AM EST Office Visit [facility], [facility] at [address] [address] Isaias Lopez [address] [address] Alana@[facility] 03/07/2025 11:30 AM EST Appointment [facility], Nuclear Medicine [address] [place] [address] Chava Mauro, KYLE [address] [place] [phone] Annie@[facility] Isaias Lpoez [address] [address] Alana@[facility] documented as of this encounter Results * [...] of PET images and anatomic correlation. COMPARISON: [id number] PET/CT of 04/18/2023. FINDINGS: HEAD AND NECK: [...] history of prostate cancer diagnosed in 2015. [place] score of 9 andtreated with radiation therapy [...] of PET images and anatomic correlation. COMPARISON: [id number] PET/CT of 04/18/2023. FINDINGS: HEAD AND NECK: [...] documented as of this encounter Care Teams Metal Off Bearer Relationship Specialty Start Date End Date Donald Bragg PA [address] [place] [address] PCP - General Physician Outsole Paraffiner 03/23/22 Self-Referred, Patient Referring Physician 03/23/22 Celio Michaels MD [address] [place] [address] 04/15/22 Wesly Tejada MD [address] [place] [address] Urology 11/23/23 documented as of this encounter Additional Source Comments The information contained in this document represents components of the legal health record. It is not the complete legal health record.[facility]
--- OUTSIDE RECORDS SUMMARY | 2025-01-03 17:43 | XMS_ITS | Encounter Summary ---
Author Organization [facility] Address [address] [facility] [address] [place] [address] Phone Care Team Providers Care Supervisor [employer] Name Role Phone Self-Referred, Patient Unavailable Unavailab Donald Dye Primary Care Provider Celio Michaels MD Unavailable Wesly Tejada MD Unavailable Encounter Details Date Type Department Care Team (Late st Contact Info) Description 12/17/2024 Orders Only [facility], [facility] [address] [place] [address], 11th [place] [address] Alcira Becerra PA-C [address] [place] [phone] [email or web address] Social History Tobacco Use Types [...] Info) Description 01/08/2025 5:15 PM EST Appointment [facility], PET/CT [address] [place] [address] Alcira Becerra PA-C [address] [place] [address] [email or web address] Isaias Lopez, [address] [address] Alana@[facility] 01/10/2025 9:00 AM EST Blood Draw Laboratory Services, [facility] at [address] [address] Isaias Lopez, [address] [address] Alana@[facility] 01/10/2025 10:00 AM EST Office Visit [facility], [facility] at [address] [address] Tera Hope, CARLY [address] [place] [address] [place] [address] Emilee@[email or web address] .[facility] 01/10/2025 11:00 AM EST Appointment [facility], Nuclear Medicine [address] [place] [address] Chava Mauro, KYLE [address] [place] [address] Annie@[email or web address] Isaias Lopez [address] [address] Alana@[facility] 02/07/2025 8:00 AM EST Blood Draw Laboratory Services, [facility] at [address] [address] Isaias Lopez [address] [address] Alana@[facility] 02/07/2025 9:00 AM EST Office Visit [facility], [facility] at [address] [address] Tera Hope, CARLY [address] [place] [address] [place] [address] Emilee@[email or web address] 02/07/2025 10:00 AM EST Appointment [facility], Nuclear Medicine [address] [place] [address] Chava Mauro NP [address] [place] [address] Annie@[facility] Isaias Lopez [address] [address] Alana@[facility] 03/07/2025 9:30 AM EST Blood Draw Laboratory Services, [facility] [place] [address] [address] Isaias Lopez [address] [address] Alana@[facility] 03/07/2025 10:30 AM EST Office Visit [facility], [facility] [place] [address] [address] Isaias Lopez, [address] [address] Alana@[facility] 03/07/2025 11:30 AM EST Appointment [facility], Nuclear Medicine [address] [address] Chava Mauro, KYLE [address] [place] [address] Annie@[facility] Isaias Lopez [address] [address] Alana@[facility] documented as of this encounter Visit Diagnoses Not on filedocumented in this encounter Care Teams Supervisor [employer] Relationship Specialty Start Date End Date Donald Bragg PA [address] [place] [address] PCP - General Physician Coal Gasification Technician 03/23/22 Self-Referred, Patient Referring Physician 03/23/22 Celio Michaels MD [address] [place] [address] 04/15/22 Wesly Tejada MD [address] [place] [address] Urology 11/23/23 documented as of this encounter Additional Source Comments The information contained in this document represents components of the legal health record. It is not the complete legal health record.[facility]
--- OUTSIDE RECORDS SUMMARY | 2025-01-03 17:44 | XMS_ITS | Encounter Summary ---
Author Organization [facility] Address [address] [facility] [address] [place] [phone] Phone Care Team Providers Care Tooth Grinder Name Role Phone Self-Referred, Patient Unavailable Unavailab Donald Dye Primary Care Provider Celio Michaels MD Unavailable [phone] Wesly Tejada MD Unavailable Encounter Details Date Type Department Care Team (Late st Contact Info) Description 12/26/2024 Ophth Exam [facility] [address] [place] [address] Pérez Chapman MD, MPH [address] [place] [address] [email or web address] Social History Tobacco Use Types Packs/Day Years Used Date Smoking Tobacco: Never Smokeless Tobacco: Never Alcohol Use Standard Drinks/Week Comments Never 0 (1 standard drink = 0.6 oz pur e alcohol) Education Answer Date Recorded Are you interested in more education? Not on margarita e 06/18/2022 Are you concerned about learning? Not on file 06/18/2022 No 06/18/2022 No 06/18/2022 Food Answer Date Recorded Within the past 6 months we worried whether our food would run out before we got money to buy more. Never True 12/26/2024 Within the past 6 months the food we bought just didn't last and we didn't have enough money to get more. Never True Residential Stability Answer Date Recor ded What is your housing situation today? I have abeba burks 12/26/2024 How many times have you move d in the past 12 months? Zero (I did not move) 12/26/2024 Paying for Meds Answer Date Recorded Do you have trouble paying for medicines? No 12/26/2024 Paying Utility Bills Answer Date Record ed Do you have trouble paying your heating or elect ricity bill? No 12/26/2024 Transportation Answer Date Recorded Has the lack of transportati on kept you from medical appointments or from getting medications? No 12/26/2024 Digital Access Answer Date Recorded No 12/26/2024 Yes 12/26/2024 Do you have reliable internet access at home? Ye s 12/26/2024 Do you have a device (e.g., phone, tablet, computer) with a working camera? Yes 12/26/2024 Intimate Partner Violence Answer Date R ecorded Are you denied basic needs s uch as food, clothing, or medical care? No 12/26/2024 In the past 12 months have y ou been in a relationship with a person who hurts, threatens, or tries to control you? No 12/26/2024 Are you denied basic needs s uch as food, clothing, or medical care? No 12/26/2024 In the past 12 months have y ou been in a relationship with a person who hurts, threatens, or tries to control you? No 12/26/2024 Sex and Gender Information Value Date Recorded Sex Assigned at Male 03/23/2022 10:32 AM EST Legal Sex Male 10:29 AM EST Gender Identity Male 03/23/2022 10:32 AM EST Sexual Orientation Straight 03/23/2022 10 :32 AM EST documented as of this encounter Functional Status * Calculated C-SSRS Risk Score (Lifetime/Recent) Answer Date of Assessment Author No Risk Indicated 12/26/2024 7:04 AM Ismael Rich RN * [place] Suicide Severity Rating Scale (Screener/Recent Self-Report) Question Answer Date of Assessment Author 1. Wish to be (Past 1 Month) No 025 7:04 AM Ismael Rich RN 2. Non-Specific Active Suici yulisa Thoughts (Past 1 Month) No 12/26/2024 7:04 AM EST Ismael Conrad, RN 6. Suicidal Behavior (Lifetime) No 7:04 AM EST Ismael Conrad, RN documented as of this encounter Plan of Treatment Upcoming Encounters Date Type Department Care Team (Late st Contact Info) Description 01/08/2025 5:15 PM EST Appointment [facility], PET/CT [address] [address] Alcira Becerra PA-C [address] [place] [address] [email or web address] Isaias Lopez, [address] [address] Alana@[facility] 01/10/2025 9:00 AM EST Blood Draw Laboratory Services, [facility] at [address] [address] Isaias Lopez, [address] [address] Alana@[facility] 01/10/2025 10:00 AM EST Office Visit [facility], [facility] at [address] [address] Tera Hope, SITE IDENTIFICATION SPECIALIST [address] [place] [address] [place] [address] [email or web address] .[email or web address] 01/10/2025 11:00 AM EST Appointment [facility], Nuclear Medicine [address] [place] [address] Chava Mauro, KYLE [address] [place] [address] Annie@[facility] Isaias Lopez [address] [address] Alana@[facility] 02/07/2025 8:00 AM EST Blood Draw Laboratory Services, [facility] at [address] [address] Isaias Lopez [address] [address] Alana@[facility] 02/07/2025 9:00 AM EST Office Visit [facility], [facility] at [address] [address] Tera Hope, CARLY [address] [place] [address] [place] [address] Emilee@[facility] 02/07/2025 10:00 AM EST Appointment [facility], Nuclear Medicine [address] [place] [address] Chava Mauro NP [address] [place] [phone] Annie@[facility] Isaias Lopez [address] [address] Alana@[facility] 03/07/2025 9:30 AM EST Blood Draw Laboratory Services, [facility] [address] [address] Isaias Lopez [address] [address] Alana@[facility] 03/07/2025 10:30 AM EST Office Visit [facility], [facility] [address] [address] Isaias Lopez [address] [address] Alana@[facility] 03/07/2025 11:30 AM EST Appointment [facility], Nuclear Medicine [address] [address] Chava Mauro, KYLE [address] [place] [address] Annie@[facility] Isaias Lopez, [address] [address] Alana@[facility] documented as of this encounter Visit Diagnoses Not on filedocumented in this encounter Care Teams Tooth Grinder Relationship Specialty Start Date End Date Donald Bragg PA [address] [place] [address] PCP - General Physician Factory Clerk 03/23/22 Self-Referred, Patient Referring Physician 03/23/22 Celio Michaels MD [address] [place] [address] 04/15/22 Wesly Tejada MD [address] [place] [address] Urology 11/23/23 documented as of this encounter Additional Source Comments The information contained in this document represents components of the legal health record. It is not the complete legal health record.[facility]
--- OUTSIDE RECORDS SUMMARY | 2025-01-03 17:44 | XMS_ITS | Encounter Summary ---
Author Organization [facility] Address [address] [facility] [address] [place] [address] Phone Care Team Providers Care Candy Butcher Name Role Phone Self-Referred, Patient Unavailable Unavailab Donald Dye Primary Care Provider Celio Michaels MD Unavailable Wesly Tejada MD Unavailable Reason for Visit * Reason Onset Date Comments Care Coordination 12/30/2024 Symptom Management 12/30/2024 Encounter Details Date Type Department Care Team (Late st Contact Info) Description 12/30/2024 Telephone [facility], [facility] [address] [place] [address], 11th [place] [address] Eryn Mendiola RN [address] [place] [phone] [email or web address] Care Coordination; Symptom Management Social History Tobacco Use Types Packs/Day Years [...] AM EST documented as of this encounter Progress Notes * Eryn Mendiola, SUHAIL - 12/30/2024 12:43 PM EST Call placed to Chaparro Shah to check in- see how his eyes are doing. Chaparro reports his eyes are improving. Eye not pink, vision is better but not completely gone. Long distance still blurry. Short distance is clear, can read phone without readers, has used them in the past. He is in the process setting follow up with with [facility]ARY on Jan 06. Reviewed he should also reach out to his local nurse orthopaedic to reports episodes and schedule a follow up. He should keep the follow up apt with [facility]ARY. Chaparro was asking if Xtandi could be the cause of the vision problems. Reviewed with Dr. Lopez - he does not feels that it is related to the Xtandi but is very happy to discuss with Chaparro at upcoming apton Jan 10. Encouraged to call the team if symptoms worsen. Next apt 01/08 for PET scan and 01/10 for labs and OV. Chaparro reports he as able to get in touch with his eye MD as he has had a tear in other eye (right) in the past. He reviewed the tear on the left eye and [place] [facility] [place] was able to scheduled a follow up on Jan 13. Eryn Mendiola RN, BSN,OCN Oncology Nurse Navigator documented in this encounter Plan of Treatment Upcoming Encounters Date Type Department Care Team (Late st Contact Info) Description 01/08/2025 5:15 PM EST Appointment [facility], PET/CT [address] [address] Alcira Becerra PA-C [address] [place] [address] [email or web address] Isaias Lopez, [facility] [address] [place] [address] Alana@[email or web address] 01/10/2025 9:00 AM EST Blood Draw Laboratory Services, [facility] at [address] [address] Isaias Lopez, [address] [address] Alana@[facility] 01/10/2025 10:00 AM EST Office Visit [facility], [facility] at [address] [address] Tera Hope, SUPERINTENDENT DRIVERS [address] [place] [address] [place] [address] Emilee@[facility] 01/10/2025 11:00 AM EST Appointment [facility], Nuclear Medicine [address] [place] [address] Chava Mauro, KYLE [address] [place] [address] Annie@[facility] Isaias Lopez, [address] [address] Alana@[facility] 02/07/2025 8:00 AM EST Blood Draw Laboratory Services, [facility] at [address] [address] Isaias Lopez, [address] [address] Alana@[facility] 02/07/2025 9:00 AM EST Office Visit [facility], [facility] at [address] [address] Tera Hope, SUPERINTENDENT [employer]IVERS [address] [place] [address] [place] [address] Emilee@[facility] 02/07/2025 10:00 AM EST Appointment [facility], Nuclear Medicine [address] [place] [address] Chava Mauro NP [address] [place] [address] Annie@[facility] Isaias Lopez [address] [address] Alana@[facility] 03/07/2025 9:30 AM EST Blood Draw Laboratory Services, [facility] at [address] [address] Isaias Lopez, [address] [address] Alana@[facility] 03/07/2025 10:30 AM EST Office Visit [facility], [facility] at [address] [address] Isaias Lopez, [address] [address] Alana@[facility] 03/07/2025 11:30 AM EST Appointment [facility], Nuclear Medicine [address] [place] [address] Chava Mauro NP [address] [place] [address] Annie@[facility] Isaias Lopez, [facility] [address] [place] [address] [email or web address] documented as of this encounter Visit Diagnoses Not on filedocumented in this encounter Care Teams Candy Butcher Relationship Specialty Start Date End Date Donald Bragg PA [address] [place] [address] PCP - General Physician Monogram Operator 03/23/22 Self-Referred, Patient Referring Physician 03/23/22 Celio Michaels MD [address] [place] [address] 04/15/22 Wesly Tejada MD [address] [place] [address] Urology 11/23/23 documented as of this encounter Additional Source Comments The information contained in this document represents components of the legal health record. It is not the complete legal health record.[facility]
--- OUTSIDE RECORDS SUMMARY | 2025-01-03 17:44 | XMS_ITS | Clinical Summary ---
Author Organization [facility] Address [address] [facility] [address] [place] [phone] Phone Care Team Providers Care Container Finishing Inspector Name Role Phone Self-Referred, Patient Unavailable Unavailab [...] daily. 120 capsule 5 12/19/19 25 Active prednisoLONE acetate (PRED FORTE) 1 % ophthalmic suspension Place 1 drop into each eye 4 (four) times a day. 10 mL 2 12/27/19 Active enzalutamide (XTANDI) 40 mg capsule Take 4 capsules (160 mg total) by mouth daily. 120 capsule 5 09/07/19 25 025 Discontinued(R eorder) venlafaxine (EFFEXOR-ER,) 37.5 mg TR24 Take 1 tablet (37.5 mg total) by mouth daily. 30 tablet 3 12/14/19 25 025 Discontinued Active Problems Problem Noted Date Diagnosed Date Prostate cancer 11/17/2023 Encounters Date Type Department Care Team Description 12/30/2024 Telephone [facility], [facility] Cancer [address] [address] Eryn Mendiola RN Care Coordination; Symptom Management 12/26/2024 9:30 AM EST Office Visit [facility] Retina [address] [address] Meron Mello MD Anterior uveitis (Primary Dx); Retinal tear of left eye 12/26/2024 6:54 AM EST - 12/26/2024 1:43 PM EST Emergency [facility] Emergency Department [address] [place] [address] Pérez Chapman MD, MPH Discharge Disposition: Home or Self Care 12/26/2024 Telephone [facility], [facility] [place] [address] [facility], [address] [place] [phone] Eryn Mendiola RN Care Coordination; Symptom Management 12/26/2024 Telephone [facility], [facility] Cancer [address] [address] Eryn Mendiola RN Care Coordination; Symptom Management 12/26/2024 Procedure Pass [facility] - [facility] [address] [address] 12/26/2024 Ophth Exam [facility] Emergency Department [address] [place] [address] Pérez Chapman MD, MPH 12/23/2024 Telephone [facility], [facility] [address], [address], [place] [address] Eryn Mendiola, SUHAIL Care Coordination 12/23/2024 Orders Only [facility], [facility] [place] [address] [address] Alcira Becerra PA-C 12/23/2024 Telephone [facility], [facility] [address] [facility] [facility], [address] [place] [address] Eryn Mendiola, SUHAIL Care Coordination; Symptom Management 12/23/2024 Telephone [facility], [facility] [address], [address] [place] [address] Eryn Mendiola, SUHAIL Care Coordination; Symptom Management 12/18/2024 Orders Only [facility], [facility] [address], [place] [address] Tera Hope, CARLY 12/17/2024 Orders Only [facility], [facility] [address], [address] [place] [address] Alcira Becerra PA-C 12/13/2024 10:31 AM EDT - 12/13/2024 11:59 PM EDT Hospital Encounter [facility], Nuclear Medicine [address] [address] Chava Mauro NP Ravi, Praful K, [facility] Discharge Disposition: Home or Self Care 12/13/2024 10:00 AM EDT Office Visit [facility], [facility] at [address] [address] Alcira Becerra PA-C Malignant neoplasm of prostate 11/15/2024 9:32 AM EDT - 11/15/2024 11:59 PM EDT Hospital Encounter [facility], Nuclear Medicine [address] [place] [address] Chava Mauro, Isaias Acevedo, [facility] Discharge Disposition: Home or Self Care 11/15/2024 9:00 AM EDT Office Visit [facility], [facility] at [address] [address] Alcira Becerra PA-C Prostate cancer (Primary Dx) 11/01/2024 Telephone [facility], [address] [place] [address] Eryn Mendiola, SUHAIL Care Coordination; Symptom Management 10/28/2024 Telephone [facility], [facility] [address] [facility], [address] [place] [address] Eryn Mendiola, RN Care Coordination; Symptom Management 10/25/2024 Telephone [facility], [facility] [address], [address] [place] [address] Eryn Mendiola, SUHAIL Care Coordination; Symptom Management 10/18/2024 10:00 AM EDT Office Visit Imaging Clinic, [facility] at [address] [address] Marla Valverde MD 10/18/2024 8:45 AM EDT - 10/18/2024 11:59 PM EDT Hospital Encounter [facility], Nuclear Medicine [address] [address] Chava Mauro NP Jacene, Heather A, MD Discharge Disposition: Home or Self Care 10/18/2024 8:00 AM EDT Office Visit [facility], [facility] [address] [address] Alcira Becerra PA-C Prostate cancer (Primary Dx) 10/17/2024 12:00 PM EDT Telemedicine - audio only [facility] Imaging Department, [facility], Imaging Clinic [address] [place] [address] Chava Mauro NP Jacene, Heather A, MD Prostate cancer (Primary Dx) 10/10/2024 Orders Only [facility], [facility] [address], [address] [place] [address] Isaias Lopez, [facility] Prostate cancer (Primary Dx) from Last 3 Months Family History Medical History Relation Comments Cancer Paternal Uncle Breast cancer Sister Relation Status Comments Paternal Uncle Sister Social History Tobacco Use Types Packs/Day Years Used Date Smoking Tobacco: Never Smokeless Tobacco: Never Tobacco Cessation:Counseling Given: Not Answered Alcohol Use Standard Drinks/Week Comments Never 0 [...] Sign Reading Time Taken Comments Blood Pressure 164/102 12/26/2024 7:01 AM EST Pulse 87 12/26/2024 7:01 AM EST Temperature 36.3 C (97.3 F) 12/26/2024 7:01 AM EST Respiratory Rate 18 12/26/2024 7:01 AM EST Oxygen Saturation 99% 12/26/2024 7:01 AM EST Inhaled Oxygen Concentration - - Weight 86.2 kg (190 lb) 12/26/2024 7:01 AM EST Height 175.3 cm (5' 9 ) 12/26/2024 7:01 AM EST Body Mass Index 28.06 12/26/2024 7:01 AM EST Plan of Treatment Upcoming Encounters Date Type Department Care Team (Late st Contact Info) Description 01/08/2025 5:15 PM EST Appointment [facility], PET/CT [address] [place] [address] Alcira Becerra PA-C [address] [place] [phone] [email or web address] Isaias Lopez [address] [address] [email or web address] 01/10/2025 9:00 AM EST Blood Draw Laboratory Services, [facility] at [address] [address] Isaias Lopez, [address] [address] [email or web address] 01/10/2025 10:00 AM EST Office Visit [facility], [facility] at [address] [address] Tera Hope, CARLY [address] [place] [address] [facility] [place] [address] [email or web address] 01/10/2025 11:00 AM EST Appointment [facility], Nuclear Medicine [address] [place] [address] Chava Mauro, KYLE [address] [place] [phone] [email or web address] Isaias Lopez [address] [address] [email or web address] 02/07/2025 8:00 AM EST Blood Draw Laboratory Services, [facility] at [address] [address] Isaias Lopez, [address] [address] Alana@[email or web address] 02/07/2025 9:00 AM EST Office Visit [facility], [facility] at [address] [address] Tera Hope, [address] [place] [address] [email or web address] 02/07/2025 10:00 AM EST Appointment [facility], Nuclear Medicine [address] [place] [address] Chava Mauro, KYLE [address] [place] [phone] [email or web address] Isaias Lopez [address] [address] [email or web address]@[email or web address] 03/07/2025 9:30 AM EST Blood Draw Laboratory Services, [facility] at [address] [address] Isaias Lopez, [address] [address] Alana@[email or web address] 03/07/2025 10:30 AM EST Office Visit [facility], [facility] [address] [address] Isaias Lopez [address] [address] Alana@[email or web address] 03/07/2025 11:30 AM EST Appointment [facility], Nuclear Medicine [address] [address] Chava Mauro, MINE CAR DISPATCHER [address] [place] [phone] [email or web address] Isaias Lopez [address] [address] [email or web address] Health Maintenance Due Date Last Done Comments LIPID PANEL 1963 TSH LEVEL 1963 DEPRESSION SCREENING 1975 HEPATITIS C SCREENING 09/07/1981 HIV ONE-TIME SCREENING (18-6 5 YEARS) 09/07/1981 PNEUMOCOCCAL VACCINES (50+ years) (1 of 2 - PCV) 09/07/1982 ZOSTER VACCINES (1 of 2) 09/07/1982 COLOGUARD 09/07/2008 COLONOSCOPY 09/07/2008 COLORECTAL CANCER SCREENING 09/07/2008 FIT TEST 09/07/2008 FOBT 09/07/2008 SIGMOIDOSCOPY 09/07/2008 VIRTUAL COLONOSCOPY 09/07/2008 INFLUENZA VACCINE (#1) 2024 COVID-19 VACCINE (2024-2 6 season) 2024 02/09/2021, 05/08/2020, 04/10/2020 SCREENING FOR DIABETES 12/14/2027 12/13/2024 Adult Td,Tdap Booster 12/31/2030 12/31/2020 RSV VACCINE (1 - 1-dose 75+ series) 09/07/2038 SMOKING STATUS SCREENING (On ce After 26 Yrs) Completed 12/26/2024 HEPATITIS A VACCINES Aged Out No long er eligible based on patient's age to complete this topic HIB VACCINES Aged Out No longer eligi ble based on patient's age to complete this topic IPV VACCINES Aged Out No longer eligi ble based on patient's age to complete this topic MENINGOCOCCAL VACCINES (ACWY) Aged Out No longer eligible based on patient's age to complete this topic MENINGOCOCCAL VACCINES (B) Aged Out N o longer eligible based on patient's age to complete this topic Medical Devices Not on file Procedures Procedure Name Priority Date/Time Associated Diagnosis Comments PROPHYLAXIS OF RETINAL DETACHMENT, LASER - OS - LEFT EYE Routine 12/27/2024 7:03 AM EST Retinal tear of left eye COLOR FUNDUS PHOTOGRAPHY - OU - BOTH EYES Routine 12/26/2024 9:41 AM EST Anterior uveitis OCT, RETINA - OU - BOTH EYES Routine 12/26/2024 9:41 AM EST Anterior uveitis CT HEAD WITHOUT CONTRAST Routine 12/26/2024 8:56 AM EST NM RADIUM 223 (XOFIGO) THERAPY Routine 12/13/2024 12:24 PM EDT Prostate cancer TESTOSTERONE, TOTAL Routine 12/13/2024 9 :38 AM EDT Prostate cancer PSA DIAGNOSTIC (MONITORING) Routine 12/13/2024 9:38 AM EDT Prostate cancer COMPREHENSIVE METABOLIC PANEL (CMP) Routine 12/13/2024 9:38 AM EDT Prostate cancer HC BLOOD COUNT COMPLETE AUTO&AUTO DIFRNTL WBC Routine 12/13/2024 9:38 AM EDT Prostate cancer NM RADIUM 223 (XOFIGO) THERAPY Routine 11/15/2024 10:30 AM EDT Prostate cancer TESTOSTERONE, TOTAL Routine 11/15/2024 8 :34 AM EDT Prostate cancer PSA DIAGNOSTIC (MONITORING) Routine 11/15/2024 8:34 AM EDT Prostate cancer COMPREHENSIVE METABOLIC PANEL (CMP) Routine 11/15/2024 8:34 AM EDT Prostate cancer [...] AM EDT Prostate cancer COMPREHENSIVE METABOLIC PANEL (CMP) Routine 10/18/2024 8:12 AM EDT Prostate cancer HC BLOOD COUNT COMPLETE AUTO&AUTO DIFRNTL WBC Routine 10/18/2024 8:12 AM EDT Prostate cancer from Last 3 Months Results * Prophylaxis of Retinal Detachment, Laser - OS - Left Eye (12/27/2024 7:03 AM EST) Anatomical Region Laterality Modality Head Other Narrative 12/27/2024 7:03 AM EST Procedure Room Timeout performed: Yes. Anesthetic Medication Proparacaine 0.5%. Delivery mode: Indirect. Lens used: 20 diopter. Power (milliwatts): 300. Pulse duration: 80 milliseconds. Total spots: 450. Meron Mello MD OPHTHALMOLOGY PROCEDURES F inal Result * Color Fundus Photography - OU - Both Eyes (12/26/2024 9:41 AM EST) Anatomical Region Laterality Modality Head Photography Narrative 12/26/2024 11:19 AM EST OD: inferior laser, attached OS: attached to extent seen Meron Mello MD OPHTHALMOLOGY IMAGING Riri l Result * OCT, RETINA - OU - BOTH EYES - [place]ade (12/26/2024 9:41 AM EST) Narrative HARMONJulio - 12/26/2024 11:19 AM EST OD: ERM, normal contours OS: normal contours Meron Mello MD OPHTHALMOLOGY IMAGING Riri l Result HARMONY * CT HEAD WITHOUT CONTRAST (12/26/2024 8:56 AM EST) Anatomical Region Laterality Modality Head Computed Tomogra phy 12/26/2024 9:00 AM EST Impressions 12/26/2024 9:42 AM EST 1. No acute intracranial abnormality. 2. Multifocal sclerotic lesions in osseous structures as described, suspicious for metastatic disease. 3. If there is need for dedicated assessment of the optic nerves and other orbital soft tissue structures, MRI may be considered. ATTESTATION: I, Dr. Amrita Sanchez as teaching physician, have reviewed the images for this case and if necessary edited the report originally created by Camilo Hernandez. Narrative 12/26/2024 9:[address] HEAD WITHOUT CONTRAST Referring clinician's provided indication for this examination in Epic: * Vision loss, binocular; per oncology team TECHNIQUE: CT of the head was performed without intravenous contrast using tailored dose modulation techniques. Images were reconstructed in the axial, coronal, and sagittal planes. COMPARISON: No similar prior FINDINGS: Brain Parenchyma: No midline shift, mass effect, or acute parenchymal hemorrhage. Ventricular System and Extra-Axial Spaces: No extra-axial fluid collections. Basal cisterns are patent. No hydrocephalus. Osseous: No calvarial fracture. There are multifocal sclerotic foci in the calvarium, at the basiocciput, and in the visualized portions of C1. There is mild mucosal thickening in bilateral ethmoid regions, a tiny osteoma in a right posterior ethmoid air cell, and retention cysts in the inferior right maxillary sinus. There is undulation of the nasal septum. Within the limits of a noncontrast CT head protocol, no definite obvious pre or post septal soft tissue thickening is seen in the orbital regions. Procedure Note Amrita Sanchez MD - 12/26/2024 CT HEAD WITHOUT CONTRAST Referring clinician's provided indication for this examination in Epic: *Vision loss, binocular; per oncology team TECHNIQUE: CT of the head was performed without intravenous contrast usingtailored dose modulation techniques. Images were reconstructed in theaxial, coronal, and sagittal planes. COMPARISON: No similar prior FINDINGS: Brain Parenchyma: No midline shift, mass effect, or acute parenchymalhemorrhage. Ventricular System and Extra-Axial Spaces: No extra-axial fluidcollections. Basal cisterns are patent. No hydrocephalus. Osseous: No calvarial fracture. There are multifocal sclerotic foci in thecalvarium, at the basiocciput, and in the visualized portions of C1. There is mild mucosal thickening in bilateral ethmoid regions, a tinyosteoma in a right posterior ethmoid air cell, and retention cysts in theinferior right maxillary sinus. There is undulation of the nasal septum. Within the limits of a noncontrast CT head protocol, no definite obviouspre or post septal soft tissue thickening is seen in the orbitalregions. IMPRESSION: 1. No acute intracranial abnormality. 2. Multifocal sclerotic lesions in osseous structures as described,suspicious for metastatic disease. 3. If there is need for dedicated assessment of the optic nerves andother orbital soft tissue structures, MRI may be considered. ATTESTATION: I, Dr. Amrita Sanchez as teaching physician, have reviewed theimages for this case and if necessary edited the report originally createdby Camilo Hernandez. us Pérez Chapman MD, MPH IMG CT HEAD/NECK Fin al Result * NM Tekamah 223 (Xofigo) Therapy (12/13/2024 12:24 PM EDT) Anatomical Region Laterality Modality Nuclear Medicine Other 12/13/2024 12:1 0 PM EDT Impressions 12/13/2024 12:59 PM EDT Tekamah-223 (Xofigo) therapy for castration-resistant prostate cancer, delivered without immediate adverse events. 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 He presents for administration #3 of radium-223 today. TECHNIQUE: Radiopharmaceutical: Tekamah-223 (Xofigo). Dose: 130.92 microCi. Procedure: Lab values [...] clinical information obtained from the EHR: 59 [id number] with metastatic castration resistant prostate cancer. He presents foradministration #3 of radium-223 today. TECHNIQUE: Radiopharmaceutical: Tekamah-223 (Xofigo). Dose: 130.92 microCi. Procedure: Lab values [...] was injected slowly over a 1-minute period [id number]. The injection was followed by flushing with saline solution. COMPARISON: None. FINDINGS: The patient tolerated the procedure well without any apparentimmediate complications. IMPRESSION: Tekamah-223 (Xofigo) therapy for castration-resistant prostate cancer,delivered without immediate adverse events. us Chava BEAULIEU RN THERAPY Riri l Result * (ABNORMAL) Comprehensive metabolic panel (12/13/2024 9:38 AM EDT) Only the most recent of3 resultswithin the time period is included. SODIUM 139 136 - 145 mmol/L [facility] POTASSIUM 4.2 3.4 - 5.1 mmol/L [facility] CHLORIDE 105 98 - 107 mmol/L [facility] CO2 20(L) 22 - 31 mmol/L [facility] BUN 9 6 - 23 mg/dL [facility] CREATININE 0.92 0.50 - 1.20 mg/dL [facility] GLUCOSE 117(H) 70 - 100 mg/dL [facility] ALBUMIN 4.1 3.5 - 5.2 g/dL [facility] TOTAL PROTEIN 7.2 6.4 - 8.3 g/dL [facility] CALCIUM 9.3 8.8 - 10.7 mg/dL [facility] ALKALINE PHOSPHATASE 75 40 - 129 U/L [facility] TOTAL BILIRUBIN 0.3 0.2 - 1.2 mg/dL [facility] AST 21 <41 U/L [facility] ALT 14 <42 U/L [facility] GLOBULIN 3.1 2.3 - 4.2 g/dL [facility] EGFR 95 >59 mL/min/1.7 3m2 [facility] Comment:Estimated glomerular filtration rate calculated using the CKD-EPI refit equation. ANION GAP 15 7 - 17 mmol/L [facility] Blood 12/13/2024 9:38 AM EDT 12/13/2024 9:43 AM EDT Alcira Meryl Mullinso PA-C LAB BLOOD BKR ORDERABLES F inal Result Performing Organization Address City/[facility] Co de Phone Number [address] * PSA diagnostic (monitoring) (12/13/2024 9:38 AM EDT) Only the most recent of3 resultswithin the time period is included. Pathologist [facility] PSA Monitoring 1.03 0.00 - 4.00 ng/mL [facility] Blood 12/13/2024 9:38 AM EDT 12/13/2024 9:43 AM EDT Alcira Sheth Becerra PA-C LAB BLOOD BKR ORDERABLES F inal Result Performing Organization Address [facility] de Phone Number [address] * (ABNORMAL) CBC and differential (12/13/2024 9:38 AM EDT) Only the most recent of3 resultswithin the time period is included. Pathologist [facility] WBC 4.26 4.00 - 10.00 K/uL [facility] RBC 4.02(L) 4.50 - 6.40 M/uL [facility] HGB 12.4(L) 13.5 - 18.0 g/dL [facility] HCT 35.8(L) 40.0 - 54.0 % [facility] PLT 262 150 - 450 K/uL [facility] MCV 89.1 80.0 - 100.0 fL [facility] MCH 30.8 27.0 - 32.0 pg [facility] MCHC 34.6 32.0 - 36.0 g/dL [facility] RDW 12.7 11.5 - 14.5 % [facility] MPV 8.7 8.4 - 12.0 fL [facility] NRBC 0.00 0.00 /100 WBCs [facility] ABSOLUTE NRBC 0.00 0 K/uL [facility] DIFF METHOD Auto [facility] NEUTS 55.0 48.0 - 76.0 % [facility] LYMPHS 32.4 18.0 - 41.0 % [facility] MONOS 9.4 4.0 - 11.0 % [facility] EOS 2.1 0.0 - 5.0 % [facility] BASOS 0.9 0.00 - 1.50 % [facility] % IMMATURE GRANS 0.2 0.00 - 1.00 % [facility] ABSOLUTE NEUTS 2.34 1.92 - 7.60 K/uL [facility] ABSOLUTE LYMPHS 1.38 0.72 - 4.10 K/uL [facility] ABSOLUTE MONOS 0.40 0.16 - 1.10 K/uL [facility] ABSOLUTE EOS 0.09 0.00 - 0.50 K/uL [facility] ABSOLUTE BASOS 0.04 0.00 - 0.15 K/uL [facility] ABS IMMATURE GRANS 0.01 0.00 - 0.10 K/uL [facility] Blood 12/13/2024 9:38 AM EDT 12/13/2024 9:43 AM EDT us Alcira Becerra PA-C LAB BLOOD BKR ORDERABLES F inal Result [facility] [address] [id number], [facility] * (ABNORMAL) Testosterone, total (12/13/2024 9:38 AM EDT) Only the most recent of3 resultswithin the time period is included. TESTOSTERONE <3(L) 193 - 740 ng/dL [facility] Blood 12/13/2024 9:38 AM EDT 12/13/2024 9:43 AM EDT Alcira Becerra PA-C LAB BLOOD BKR ORDERABLES F inal Result [facility] [address] [id number], [facility] * NM Tekamah 223 (Xofigo) Therapy (11/15/2024 10:30 AM EDT) Anatomical Region Laterality Modality Nuclear Medicine Other 11/19/2024 9:13 AM EDT Impressions 11/19/2024 9:24 AM EDT Tekamah-223 (Xofigo) therapy for castration-resistant prostate cancer, delivered without immediate adverse events. 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 He presents for administration #2 of radium-223 today. TECHNIQUE: Radiopharmaceutical: Tekamah-223 (Xofigo). Dose: 130.6 microCi. Procedure: Lab values [...] clinical information obtained from the EHR: 59 [id number] with metastatic castration resistant prostate cancer with progressionshowing more bone disease. He presents for administration #2 ofradium-223 today. TECHNIQUE: Radiopharmaceutical: Tekamah-223 (Xofigo). Dose: 130.6 microCi. Procedure: Lab values obtained 11/15/2024 were reviewed. Platelet count [id number] K/microL, hemoglobin was 13.1 g/dL, and absolute [...] procedure well without any apparentimmediate complications. IMPRESSION: Tekamah-223 (Xofigo) therapy for castration-resistant prostate cancer,delivered without immediate adverse events. Chava Mauro NP IMG NM RN THERAPY Riri l Result * NM Tekamah 223 (Xofigo) Therapy (10/18/2024 11:52 AM EDT) Anatomical Region Laterality Modality Nuclear Medicine Other 10/18/2024 11:0 2 AM EDT Impressions 10/18/2024 12:23 PM EDT Tekamah-223 (Xofigo) therapy for castration-resistant prostate cancer, delivered without immediate adverse events. 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 He presents for administration #1 of radium-223 today. TECHNIQUE: Radiopharmaceutical: Tekamah-223 (Xofigo). Dose: 128.2 microCi. Procedure: Lab values [...] a time-out was performed by Dr. Marla Lovelace at 10:54. The radiopharmaceutical was injected slowly [...] foradministration #1 of radium-223 today. TECHNIQUE: Radiopharmaceutical: Tekamah-223 (Xofigo). Dose: 128.2 microCi. Procedure: Lab values obtained 10/18/24 were reviewed. Platelet count isk691 K/microL, hemoglobin was 12.9 g/dL, and absolute neutrophil count was2.4 K/microL. These values were all within the acceptable range fortreatment. An IV catheter was placed at the injection site in the left hand, and freeflow of saline test infusion and free blood return were verified.Immediately prior to the injection of the radiopharmaceutical, a time-outwas performed by Dr. Marla Lovelace at 10:54. The radiopharmaceutical was injected slowly over a 1-minute period at11:01. The injection was followed by flushing with saline solution. COMPARISON: None. FINDINGS: The patient tolerated the procedure well without any apparentimmediate complications. IMPRESSION: Tekamah-223 (Xofigo) therapy for castration-resistant prostate cancer,delivered without immediate adverse events. us Chava Mauro NP IMG NM RN THERAPY Riri l Result * RGENP ROOM TEMP (10/18/2024 8:12 AM EDT) [facility] Research Test FOR RESEARCH STUDY [facility] LIC# [id number] Blood 10/18/2024 8:12 AM EDT 10/18/2024 8:14 AM EDT us Isaias Lopez [facility] LAB BLOOD ORDERABLES Final R esult [facility] LIC# [id number] [address] [place] [address], [facility] from Last 3 Months Insurance [employer] [facility] [employer] [place] [place] [address] CHOICE CHOICE [facility] CHOICE [facility] CHO[facility] Care Teams Container Finishing Inspector Relationship Specialty Start Date End Date Donald Bragg PA [address] [place] [address] PCP - General Physician Septic Tank Service Technician 03/23/22 Self-Referred, Patient Referring Physician 03/23/22 Celio Michaels MD [address] [place] [address] 04/15/22 Wesly Tejada MD [address] [place] [address] Urology 11/23/23 Additional Source Comments The information contained in this document represents components of the legal health record. It is not the complete legal health record.[facility]
--- OUTSIDE RECORDS SUMMARY | 2025-01-03 17:45 | XMS_ITS | Encounter Summary ---
Author Organization [facility] Address [address] [facility] [address] [place] [address] Phone Care Team Providers Care Novelty Chain Maker Name Role Phone Self-Referred, Patient Unavailable Unavailab Donald Dye Primary Care Provider [phone] Celio Michaels MD Unavailable [phone]- [phone] Wesly Tejada MD Unavailable Reason for Referral * Consultation (Within 2 weeks) - New Request Specialty Diagnoses / Procedures Referred By Akila lyon Referred To Contact Ophthalmology Alcira Becerra PA-C [address] [place] [address] Phone: tel: fax: mailto:[email or web address] [address] [place] [id number] Referral ID Status Reason Start Date Expiration Date V isits Requested Visits Authorized [id number] New Request 12/23/2024 12/23/2025 1 1 Encounter Details Date Type Department Care Team (Late st Contact Info) Description 12/23/2024 Orders Only [facility], [facility] [place] [facility] [place] [address] [facility] [address] [place] [address] Alcira Becerra PA-C [address] [place] [address] [email or web address] Social History Tobacco Use Types Packs/Day Years [...] Author No Risk Indicated 12/26/2024 7:04 AM EST Ismael Conrad RN * [place] Suicide Severity Rating Scale (Screener/Recent Self-Report) Question Answer Date of Assessment Author 1. Wish to be (Past 1 Month) No 025 7:04 AM EST Ismael Conrad, SUHAIL 2. Non-Specific Active Suici yulisa Thoughts (Past 1 Month) No 12/26/2024 7:04 AM EST Ismael Conrad RN 6. Suicidal Behavior (Lifetime) No 7:04 AM EST Ismael Conrad RN documented as of this encounter Plan of Treatment Upcoming Encounters Date Type Department Care Team (Late st Contact Info) Description 01/08/2025 5:15 PM EST Appointment [facility] [place], PET/CT [address] [address] Alcira Becerra PA-C [address] [place] [phone] [email or web address] Isaias Lopez [address] [phone] [email or web address] 01/10/2025 9:00 AM EST Blood Draw Laboratory Services, [facility] [place] at [address] [address] Isaias Lopez [address] [address] [email or web address] 01/10/2025 10:00 AM EST Office Visit [facility], [facility] at [address] [address] Tera Hope, CARLY [address] [place] [address] [place] [address] [email or web address] 01/10/2025 11:00 AM EST Appointment [facility], Nuclear Medicine [address] [place] [address] Chava Mauro NP [address] [place] [phone] [email or web address] Isaias Lopez, [address] [address] [email or web address] 02/07/2025 8:00 AM EST Blood Draw Laboratory Services, [facility] at [address] [address] Isaias Lopez, [address] [address] Alana@[email or web address] 02/07/2025 9:00 AM EST Office Visit [facility], [facility] at [address] [address] Tera Hope, CARLY [address] [place] [address] [place] [address] [email or web address] 02/07/2025 10:00 AM EST Appointment [facility] [place], Nuclear Medicine [address] [place] [address] Chava Mauro NP [address] [place] [phone] [email or web address]@[email or web address] Isaias Lopez [address] [address] [email or web address] 03/07/2025 9:30 AM EST Blood Draw Laboratory Services, [facility] at [address] [address] Isaias Lopez [address] [address] Alana@[email or web address] 03/07/2025 10:30 AM EST Office Visit [facility], [facility] at [address] [address] Isaias Lopez [address] [address] Alana@[email or web address] 03/07/2025 11:30 AM EST Appointment [facility] [place], Nuclear Medicine [address] [place] [address] Chava Mauro NP [address] [place] [phone] [email or web address]@[email or web address] Isaias Lopez [address] [address] [email or web address] Scheduled Referrals Name Type Priority Associated Diagnoses Order Schedule [facility] [place] [facility] [place] Outpatient Referral Routine Ordered: 12/23/2024 documented as of this encounter Visit Diagnoses Not on filedocumented in this encounter Care Teams Novelty Chain Maker Relationship Specialty Start Date End Date Donald Bragg PA [address] [place] [address] PCP - General Physician Stone Splitter 03/23/22 Self-Referred, Patient Referring Physician 03/23/22 Celio Michaels MD [address] [place] [address] 04/15/22 Wesly Tejada MD [address] [place] [address] Urology 11/23/23 documented as of this encounter Additional Source Comments The information contained in this document represents components of the legal health record. It is not the complete legal health record.[facility]
== END 2025-01-03 11:53 | disposition home or self-care (01) ==
LOC: HO.HUSH 11:29
PROVIDERS: PCP Physician Assistant; Visit Provider Urology
DX: C61 Malignant neoplasm of prostate (principal)

== ENCOUNTER → 2025-01-03 11:29 | Outpatient (BNVA) | payer OTHER, SELFPAY | PROVIDERS: PCP Physician Assistant; Visit Provider Urology | DX: Z51.11 Encounter for antineoplastic chemotherapy (principal); C61 Malignant neoplasm of prostate | CPT/HCPCS: 96402; J9217 ==